=== PATIENT | male | born 1980 | race Caucasian/White ===

== ENCOUNTER 2020-02-28 13:03 | Inpatient (IN) ==
[2020-02-28 13:12] VITALS: BMI 31.6
[2020-02-28] MEDS ORDERED: MORPHINE SULFATE INJ 2 MG INJ IVP ONE (13:34)
[2020-02-28] MEDS ORDERED: ASPIRIN 81 MG CHEWTAB ONE (13:48)
[2020-02-28] MEDS ORDERED: MORPHINE SULFATE INJ 2 MG INJ ONE ×2 (13:49→18:02)
--- NOTE | 2020-02-28 13:58 | RAD ---
HISTORYCHEST PAINSTUDYPortable AP chestCOMPARISONNoneFINDINGSThe lungs are clear and the heart and mediastinum are unremarkable. There is no edema or effusion or congestion. No bony abnormality is suggested.IMPRESSIONNo evidence for active cardiopulmonary diseaseElectronically signed by: NELLY CLEVELAND (Feb 28, 2020 13:57:12)
--- NOTE | 2020-02-28 14:13 | DR.CP ---
HPI Time Seen Time Seen by Provider: 02/28/20 13:27 PCP Primary Care Physician: JAMES LARIOS Complaint Chief Complaint Doctor Comments: A 40 y/o male with SOB for about 1 month now. The dyspnea worsens with exertion. He has also some chest pressure which is non- radiating. There is no nausea or vomiting and diaphoresis. He states that his labs. were drawn in his PCPs office yesterday and this showed cholesterol over 900 and Triglyceride over 8000. He is known to have hyperlipidemia but his Triglyceride values were never this high, she states. Chief Complaint:: PT C/O HIGH TRIGLYCERIEDES, .. AND > SOB AND INTERMITTANT C/P AND PT HAD LABS DRAWN AT [facility] ON 02/27/2020 AND EKG DONE AND PT TOLD TO COME TO ER FOR ALEXIA NOE COVID-19 Coronavirus risk:travel/contact w/high risk person: No Has patient experienced Coronavirus symptoms: Yes Coronavirus symptoms experienced: Shortness of Breath Reviewed Nurses Notes Review: Yes Source History Provided: Patient Mode of Arrival Mode of Arrival: Ambulatory Timing Onset of Chief Complaint: 02/26/20 Location Location of Chest Pain: Chest Chest Pain Radiation Location: None Context Onset: At rest Cardiac Risk Factors: Hyperlipidemia and Diabetes PE Risk Factors: None History of: None Prehospital Care: None Quality Quality: Squeezing Severity Severity: Mild and Moderate Modifying Factors Worsens: Nothing Impoves: Nothing Associated Signs and Symptoms Associated Signs and Symptoms: Shortness of Breath PMH PMH Past Medical History: Yes Past Medical History: Dementia, Dyslipidemia and Hypertension Past Medical History Comment: PANCREATITIS , ID , HEART CATH Past Surgical History: Yes Surgical History: Appendectomy Family History History of Family Medical Conditions: No Social History Does patient currently use any type of tobacco product: No Have you used tobacco products in the last 12 months: No Type of Tobacco Use: None Does any household member use tobacco: No Alcohol Use: None Do you use any recreational Drugs:: No Lives With: Family Lives Where: Home Travel Risk Coronavirus risk:travel/contact w/high risk person: No Has patient experienced Coronavirus symptoms: Yes Coronavirus symptoms experienced: Shortness of Breath Infectious screening In the last 2 months have you had wt loss of >10#?: NO Have you had fever, night sweats or hemotysis?: No Have you traveled outside the country in the last 6 months?: No Isolation: Standard ROS Review of Systems Constitutional: No Symptoms Reported Eyes: No Symptoms Reported ENTM: No Symptoms Reported Respiratoy: Short of Breath Cardiovascular: Chest Pain Gastrointestinal/Abdominal: No Symptoms Reported Genitourinary: No Symptoms Reported Neurological: No Symptoms Reported Musculoskeletal: No Symptoms Reported Integumentary: No Symptoms Reported Hematologic/Lymphatic: No Symptoms Reported Endocrine: No Symptoms Reported Psychiatric: No Symptoms Reported PE Vitals Vitals: Temperature 98.1 F Pulse Rate 101 Respiratory Rate 19 Blood Pressure 171/94 O2 Sat by Pulse Oximetry 98 General Limitations: No Limitations General Appearance: Alert and In No Apparent Distress Head Head Exam: Normal Inspection, Atraumatic and Normocephalic Eyes Eye exam: Normal Appearance and EOMI ENT ENT Exam: Normal Exam, Normal Oropharynx, Normal External Ear Exam and Mucous Membranes Moist Chest Chest Inspection: Normal Inspection and Symmetric Chest Wall Rise Respiratory Respiratory Exam: Normal Lung Sounds Bilat Cardiovascular Cardiovascular Exam: Regular Rate, Normal Rhythm, Normal Heart Sounds, +S1 and +S2 Abdominal Exam Abdominal Exam: Normal Inspection, Normal Bowel Sounds and Soft Extremities Extremities Exam: Normal Inspection and Full ROM Back Back Exam: Normal Inspection and Full ROM Neurologic Neurological Exam: Alert and Oriented X3 Psychiatric Psychiatric Exam: Normal Affect and Normal Mood Skin Skin Exam: Dry and Normal Color COURSE Treatment Treatment: I spoke with his PCP (Dr. Madrigal), he agrees to have the pt. placed in OBS. Reevaluation 1st: Improved Education/Counseling Education/Counseling: Patient, Family, Education and Counseling Educated On: Treatment, Diagnosis, Prognosis and Needs for Follow Up ROR Labs Reviewed Laboratory Results Reviewed?: Yes Result Diagrams: 02/28/20 14:23 02/28/20 14:23 Laboratory: WBC 5.6 X10^3/uL (3.6-10.0) 02/28/20 14:23 RBC 4.66 X10^6/uL (4.7-6.0) L 02/28/20 14:23 Hgb 13.3 g/dL (13.5-18.0) L 02/28/20 14:23 Hct 37.2 % (42.0-54.0) L 02/28/20 14:23 MCV 79.9 fL (80.0-100.0) L 02/28/20 14:23 MCH 28.5 pg (27.0-34.0) 02/28/20 14:23 MCHC 35.7 g/dL (33.0-35.0) H 02/28/20 14:23 RDW 14.4 % (11.6-16.5) 02/28/20 14:23 Plt Count 187 X10^3/uL (150.0-450.0) 02/28/20 14:23 MPV 7.6 fL (7.4-11.0) 02/28/20 14:23 Neut % (Auto) 57.6 % (42.0-75.0) 02/28/20 14:23 Lymph % (Auto) 32.6 % (21.0-51.0) 02/28/20 14:23 [place] % (Auto) 6.3 % (0.0-13.0) 02/28/20 14:23 Eos % (Auto) 2.4 % (0.9-2.9) 02/28/20 14:23 Baso % (Auto) 1.1 % (0.2-1.0) H 02/28/20 14:23 Neut # (Auto) 3.2 x10^3/uL (2.2-4.8) 02/28/20 14:23 Lymph # (Auto) 1.8 X10^3/uL (1.3-2.9) 02/28/20 14:23 [place] # (Auto) 0.4 x10^3/uL (0.3-0.8) 02/28/20 14:23 Eos # (Auto) 0.1 x10^3/uL (0.0-0.2) 02/28/20 14:23 Baso # (Auto) 0.1 X10^3/uL (0.0-0.1) 02/28/20 14:23 Absolute Nucleated RBC 0.6 /100WBC 02/28/20 14:23 PT 12.1 SECONDS (11.8-14.3) 02/28/20 14:23 INR Target Range - 02/28/20 14:23 INR 0.92 (0.8-1.3) 02/28/20 14:23 D-Dimer < 100 ng/mL (0-400) 02/28/20 14:23 Sodium 122 mmol/L (136-145) L* 02/28/20 14:23 Corrected Sodium 129 mmol/L (136-145) L 02/28/20 14:23 Potassium 4.1 mmol/L (3.5-5.1) 02/28/20 14:23 Chloride 89 mmol/L (98-107) L 02/28/20 14:23 Carbon Dioxide 18.5 mmol/L (21-32) L 02/28/20 14:23 BUN 12 mg/dL (7-18) 02/28/20 14:23 Creatinine 0.80 mg/dL (0.70-1.30) 02/28/20 14:23 Est GFR (MDRD) Af Amer > 60 (>60) 02/28/20 14:23 Est GFR (MDRD) Non-Af > 60 (>60) 02/28/20 14:23 Glucose 410 mg/dL (65-99) H 02/28/20 14:23 Calcium 6.5 mg/dL (8.5-10.1) L 02/28/20 14:23 Corrected Calcium 7.3 mg/dL (8.5-10.1) L 02/28/20 14:23 Magnesium 1.6 mg/dL (1.7-2.9) L 02/28/20 14:23 Total Bilirubin 0.24 mg/dL (0.2-1.0) 02/28/20 14:23 AST 8 Units/L (15-37) L 02/28/20 14:23 ALT 24 Units/L (12-78) 02/28/20 14:23 Alkaline Phosphatase 65 Units/L (46-116) 02/28/20 14:23 Creatine Kinase 43 Units/L (39-308) 02/28/20 14:23 CK-MB (CK-2) < 1.0 ng/mL (0-4.0) 02/28/20 14:23 CK/CKMB % Calc 2.3 % (<4) 02/28/20 14:23 Troponin I 0.12 ng/mL (0-1.5) 02/28/20 14:23 Total Protein 3.8 g/dL (6.4-8.2) L 02/28/20 14:23 Albumin 3.0 g/dL (3.4-5.0) L 02/28/20 14:23 Globulin 0.8 g/dL (2.5-4.5) L 02/28/20 14:23 Albumin/Globulin Ratio 3.8 Ratio (1.1-2.1) H 02/28/20 14:23 Specimen Type Clean catch urine 02/28/20 14:12 Urine Color Yellow (YELLOW) 02/28/20 14:12 Urine Appearance Clear (CLEAR) 02/28/20 14:12 Urine pH 5.0 (5.0 - 8.0) 02/28/20 14:12 Ur Specific [place] 1.015 (1.000-1.030) 02/28/20 14:12 Urine Protein Negative (NEGATIVE) 02/28/20 14:12 Urine Glucose (UA) 4+ (NEGATIVE) 02/28/20 14:12 Urine Ketones 1+ (NEGATIVE) 02/28/20 14:12 Urine Occult Blood Negative (NEGATIVE) 02/28/20 14:12 Urine Nitrite Negative (NEGATIVE) 02/28/20 14:12 Urine Bilirubin Negative (NEGATIVE) 02/28/20 14:12 Urine Urobilinogen Normal (NORMAL) 02/28/20 14:12 Ur Leukocyte Esterase Negative (NEGATIVE) 02/28/20 14:12 XRAY XRAY Interpreted by: Self X-ray Results: CXR: normal chest exam. Radiologist report is pending. EKG Rate: 110 Taylor: Normal Rhythm: ST Block: None Hypertrophy: None ST: Normal Opioid Opioid Risk Tool Age (Bruce box if 16-45): Yes History of Preadolescent Sexual Abuse: No Total: 1 Total Score Risk Category: Low Risk Copyright: [facility] predicting aberrant behaviors Diagnosis Discharge Problem: Acute hyponatremia, Type 2 diabetes mellitus with hyperglycemia, with long-term current use of insulin Chest pain Qualifiers: Chest pain type: unspecified Qualified Code(s): R07.9 - Chest pain, unspecified HTN (hypertension) Qualifiers: Hypertension type: essential hypertension Qualified Code(s): I10 - Essential (primary) hypertension ADDITIONAL NOTES Additional Notes Additional Notes: [id number] : 1980 Sex: M Location: ER Order Number(s): [id number] Procedure(s):CHEST, 1 VIEW Ordering Physician: MYA PHAM Primary Care: Chase Madrigal Service Date: 02/28/20 Service Time: 1334 HISTORY CHEST PAIN STUDY Portable AP chest COMPARISON None FINDINGS The lungs are clear and the heart and mediastinum are unremarkable. There is no edema or effusion or congestion. No bony abnormality is suggested. IMPRESSION No evidence for active cardiopulmonary disease Electronically signed by: NELLY CLEVELAND (Feb 28, 2020 13:57:12) Report Electronically signed: 02/28/20 1358 CC: Mya Pham
[2020-02-28 14:33] LABS: EOSINOPHILS % (AUTO) 2.4 % (0.9-2.9)
[2020-02-28 14:35] LABS: BILIRUBIN,URINE NEGATIVE (NEGATIVE); BLOOD/HEMOGLOBIN,URINE NEGATIVE (NEGATIVE); GLUCOSE, URINE 4+ (NEGATIVE); KETONES,URINE 1+ (NEGATIVE); LEUKOCYTE ESTERASE ,URINE NEGATIVE (NEGATIVE); NITRITES,URINE NEGATIVE (NEGATIVE); PROTEIN,URINE NEGATIVE (NEGATIVE); UROBILINOGEN,URINE NORMAL (NORMAL)
[2020-02-28 14:39] LABS: APPEARANCE,URINE CLEAR (CLEAR); COLOR,URINE YELLOW (YELLOW)
[2020-02-28 14:52] LABS: BASOPHILS # (AUTO) 0.1 X10^3/uL (0.0-0.1); BASOPHILS % (AUTO) 1.1 % (0.2-1.0); EOSINOPHILS # (AUTO) 0.1 x10^3/uL (0.0-0.2); HEMATOCRIT 37.2 % (42.0-54.0); HEMOGLOBIN 13.3 g/dL (13.5-18.0); LYMPHOCYTES # (AUTO) 1.8 X10^3/uL (1.3-2.9); LYMPHOCYTES % (AUTO) 32.6 % (21.0-51.0); MEAN CORPUSCULAR HEMOGLOBIN 28.5 pg (27.0-34.0); MEAN CORPUSCULAR HGB CONC 35.7 g/dL (33.0-35.0); MEAN CORPUSCULAR VOLUME 79.9 fL (80.0-100.0); MEAN PLATELET VOLUME 7.6 fL (7.4-11.0); MONOCYTES # (AUTO) 0.4 x10^3/uL (0.3-0.8); MONOCYTES % (AUTO) 6.3 % (0.0-13.0); NEUTROPHILS # (AUTO) 3.2 x10^3/uL (2.2-4.8); NEUTROPHILS % (AUTO) 57.6 % (42.0-75.0); PLATELET COUNT 187 X10^3/uL (150.0-450.0); RED BLOOD COUNT 4.66 X10^6/uL (4.7-6.0); RED CELL DISTRIBUTION WIDTH 14.4 % (11.6-16.5); WHITE BLOOD COUNT 5.6 X10^3/uL (3.6-10.0)
[2020-02-28 15:37] LABS: CARBON DIOXIDE 18.5 mmol/L (21-32); CHLORIDE 89 mmol/L (98-107); SODIUM 122 mmol/L (136-145)
[2020-02-28 15:38] LABS: ALANINE AMINOTRANSFERASE 24 Units/L (12-78); ALKALINE PHOSPHATASE 65 Units/L (46-116); ASPARTATE AMINO TRANSFERASE 8 Units/L (15-37); BLOOD UREA NITROGEN 12 mg/dL (7-18); CALCIUM 6.5 mg/dL (8.5-10.1); COR NA(FOR HYPERGLY) 129 mmol/L (136-145); eGFR NON BLACK RACES > 60 (>60)
[2020-02-28 15:39] LABS: CKMB % 2.3 % (<4); COR CA(FOR HYPOALB) 7.3 mg/dL (8.5-10.1); CREATINE KINASE 43 Units/L (39-308); CREATINE KINASE MB < 1.0 ng/mL (0-4.0); MAGNESIUM 1.6 mg/dL (1.7-2.9); TOTAL PROTEIN 3.8 g/dL (6.4-8.2); TROPONIN I 0.12 ng/mL (0-1.5)
[2020-02-28] MEDS ORDERED: NITROSTAT SL PRN (17:28)
[2020-02-28] MEDS ORDERED: INSULIN ASPART U 1 UNIT subcut PRN (17:28)
[2020-02-28 17:50] LABS: AMYLASE 27 Units/L (25-115)
[2020-02-28 17:52] LABS: LIPASE 90 Units/L (73-393)
[2020-02-28] MEDS: MORPHINE SULFATE INJ 2 MG INJ IVP PRN ×2 (18:05→23:46)
[2020-02-28] MEDS ORDERED: ZOFRAN INJ 4 MG VIAL ONE (18:15)
[2020-02-28] MEDS: ZOFRAN INJ 4 MG VIAL IVP PRN (18:23)
[2020-02-28] MEDS: NS 1000 ML 1,000 ML IV SCH (18:33)
[2020-02-28] MEDS: SNACK - Diabetic Appropriate PO SCH (20:30)
[2020-02-28] MEDS ORDERED: GLUCOPHAGE ONE (20:44)
[2020-02-28] MEDS: LIPITOR TAB 40 MG PO SCH (21:01)
[2020-02-28] MEDS: GLUCOPHAGE PO SCH (21:01)
[2020-02-28] MEDS: LOPRESSOR TAB 50 MG PO SCH (21:01)
[2020-02-28 21:11] LABS: TROPONIN I 0.12 ng/mL (0-1.5)
[2020-02-28] MEDS: RESTORIL CAP 15 MG PO PRN (21:30)
[2020-02-28 21:52] LABS: CKMB % 7.2 % (<4); CREATINE KINASE MB 5.2 ng/mL (0-4.0)
[2020-02-28] MEDS: HumuLIN R SUBCUT PRN (22:00)
[2020-02-28] MEDS: NORCO 5/325 MG TAB PO PRN (22:00)
[2020-02-28 23:58] LABS: CKMB % 4.4 % (<4)
[2020-02-28 23:59] LABS: CREATINE KINASE MB 5.5 ng/mL (0-4.0); TROPONIN I 0.1 ng/mL (0-1.5)
[2020-02-29] MEDS: NS 1000 ML 1,000 ML IV SCH ×3 (01:57→17:30)
[2020-02-29] MEDS: ZOFRAN INJ 4 MG VIAL IVP PRN ×2 (02:30→19:40)
[2020-02-29 03:01] LABS: CKMB % 2.1 % (<4)
[2020-02-29 03:02] LABS: TROPONIN I 0.09 ng/mL (0-1.5)
[2020-02-29] MEDS: MORPHINE SULFATE INJ 2 MG INJ IVP PRN ×4 (05:36→19:40)
[2020-02-29] MEDS: HumuLIN R SUBCUT PRN ×3 (06:39→17:37)
[2020-02-29 06:46] LABS: BASOPHILS # (AUTO) 0.1 X10^3/uL (0.0-0.1); BASOPHILS % (AUTO) 0.9 % (0.2-1.0); EOSINOPHILS # (AUTO) 0.2 x10^3/uL (0.0-0.2); EOSINOPHILS % (AUTO) 3.7 % (0.9-2.9); HEMATOCRIT 39.7 % (42.0-54.0); LYMPHOCYTES # (AUTO) 2.1 X10^3/uL (1.3-2.9); LYMPHOCYTES % (AUTO) 32.6 % (21.0-51.0); MEAN CORPUSCULAR HEMOGLOBIN 29.1 pg (27.0-34.0); MEAN CORPUSCULAR HGB CONC 35.8 g/dL (33.0-35.0); MEAN CORPUSCULAR VOLUME 81.3 fL (80.0-100.0); MONOCYTES # (AUTO) 0.5 x10^3/uL (0.3-0.8); MONOCYTES % (AUTO) 7.6 % (0.0-13.0); NEUTROPHILS # (AUTO) 3.6 x10^3/uL (2.2-4.8); NEUTROPHILS % (AUTO) 55.2 % (42.0-75.0); PLATELET COUNT 241 X10^3/uL (150.0-450.0); RED BLOOD COUNT 4.88 X10^6/uL (4.7-6.0); WHITE BLOOD COUNT 6.5 X10^3/uL (3.6-10.0)
[2020-02-29 07:02] LABS: CHLORIDE 93 mmol/L (98-107); SODIUM 126 mmol/L (136-145)
[2020-02-29 07:03] LABS: BLOOD UREA NITROGEN 14 mg/dL (7-18); CALCIUM 7.9 mg/dL (8.5-10.1); CARBON DIOXIDE 27.4 mmol/L (21-32); COR NA(FOR HYPERGLY) 133 mmol/L (136-145); eGFR NON BLACK RACES > 60 (>60)
[2020-02-29 07:04] LABS: ALANINE AMINOTRANSFERASE 54 Units/L (12-78); ALBUMIN 3.5 g/dL (3.4-5.0); ALKALINE PHOSPHATASE 77 Units/L (46-116); ASPARTATE AMINO TRANSFERASE 24 Units/L (15-37); TOTAL PROTEIN 5.9 g/dL (6.4-8.2)
[2020-02-29 07:05] LABS: HEMOGLOBIN 14.2 g/dL (13.5-18.0)
[2020-02-29 07:06] LABS: HDL CHOLESTEROL 35 mg/dL (40-60); PLATELET MORPHOLOGY COMMENT NORMAL (NORMAL); TRIGLYCERIDES 3349 mg/dL (0-150)
[2020-02-29] MEDS ORDERED: ACTOS PO SCH (09:00)
[2020-02-29] MEDS ORDERED: ASPIRIN 81 MG CHEWTAB PO SCH (09:00)
[2020-02-29] MEDS ORDERED: GLUCOPHAGE ONE ×2 (09:09→20:16)
[2020-02-29] MEDS: GLUCOPHAGE PO SCH ×2 (09:42→20:51)
[2020-02-29] MEDS: ASPIRIN PO SCH (09:42)
[2020-02-29] MEDS: LOPRESSOR TAB 50 MG PO SCH ×2 (09:43→20:55)
[2020-02-29] MEDS: TRICOR TAB 160 MG PO SCH (09:43)
[2020-02-29] MEDS: LOVENOX INJ 40 MG SYR SC SCH (09:44)
--- NOTE | 2020-02-29 10:55 | DR.H&P ---
H&P - History & Physical for Day of: H&P Date: 02/28/20 - Chief Complaint Chief Complaint: SOB, CHEST PAIN, HEADACHE, MUSCLE WEAKNESS, NAUSEA - History of Present Illness History of Present Illness: IS A 40 YEAR OLD PATIENT OF OURS WHO PRESENTED TO THE ER WITH COMPLAINTS OF SHORTNESS OF BREATH, CHEST PAIN, HEADACHE, AND MUSCLE WEAKNESS. HE DESCRIBES CHEST PAIN PRESSURE AND NON- RADIATING. OVERALL PAIN IS RATED 6/10. SYMPOTMS STARTED ABOUT A MONTH AGO AND HAVE PROGRESSIVELY GOTTEN WORSE. HE HAD OUTPATIENT LABS AT THE OFFICE, WHICH REPORTED A CRITICAL HIGH TRIGLYCERIDE OVER 8,000 AND CHOLESTEROL OVER 900. HE DOES HAVE A HISTORY OF HYPERLIPIDEMIA AND IS CURRENTLY ON LIPITOR 80MG PO HS. OTHER PMH INCLUDES: PANCREATITIS, CA, DEMENTIA, DYSLIPIDEMIA, HTN, AND APPENDECTOMY. ON ARRIVAL TO THE ER, VITALS WERE 98.1-104-20-95%-171/94. LABS WERE OBTAINED. ABNORMAL LAB VALUES INCLUDE THE FOLLOWING: RBC 4.66, HGB 13.3, HCT 37.2, SODIUM 122, CHLORIDE 89, CARBON DIOXIDE 18.5, GLUCOSE 410, CALCIUM 6.5, MAGNESIUM 1.6, AST 8, TOTAL PROTEIN 3.8, ALBUMIN 3.0. CARDIAC ENZYMES AND AMYLASE/LIPASE WERE NORMAL. FASTING LIPID PANEL REVEALED TRIGLYCERIDES 3349. URINALYSIS UNREMARKABLE. AN EKG WAS OBTAINED AND REVEALED: SINUS TACHYCARDIA WIT H HR 110. A CHEST XRAY WAS OBTAINED AND REVEALED: NO EVIDENCE FOR ACTIVE CARDIOPULMONARY DISEASE. HE WAS GIVEN ASPIRIN 80MG PO X 1 AND MORPHINE 2MG IV X 1 IN THE ER. HE REPORTED SLIGHT IMPROVEMENT IN SYMPTOMS. HE WAS ADMITTED TO THE HOSPITAL FOR FURTHER EVALUATION AND TREATMENT OF HYPONATREMIA, CHEST PAIN, DIABETES, AND ELEVATED TRIGLYCERIDES. HE WAS STARTED ON NS AT 125ML/HR, HUMULIN R SLIDING SCALE, LEVEMIR 10 UNITS SC BID, TRICOR 160MG PO DAILY, ZOFRAN 4MG IV Q8H PRN, NITROSTAT PRN, AND HIS HOME MEDICATIONS WERE RESUMED. HOME MEDICATIONS INCLUDE METFORMIN, LIPITOR, METOPROLOL, AND ASPIRIN. WE WILL RESTRICT HIS FLUID INTAKE TODAY AND START A SOUTH Doculynx DIET. SERIAL CARDIAC ENZYMES AND EKGS WERE OBTAINED THROUGHOUT THE NIGHT TO RULE OUT ACUTE CA. OTHERWISE, WE PLAN TO FOLLOW UP WITH AM LABS AND CONTINUE TO MONITOR. - Past Medical History Past Medical History: Hypertension, Dyslipidemia, Dementia - Past Surgical History Surgical History: Appendectomy, Other - Social History Does patient currently use any type of tobacco product: No Have you used tobacco products in the last 12 months: No Type of Tobacco Use: None Does any household member use tobacco: No Alcohol Use: None Drug Use: None - Medications Home Medications: No Known Drug Allergies Allergy (Verified 02/28/20 13:13) CONTINUE taking the following medications aspirin 325 mg PO DAILY 02/28/20 [History] atorvastatin 80 mg PO HS 02/28/20 [History] insulin aspart U-100 [Novolog U-100 Insulin aspart] 1 unit SUBCUT PRN PRN 02/28/20 [History] metformin 1,000 mg PO BID 02/28/20 [History] metoprolol tartrate 50 mg PO BID 02/28/20 [History] pioglitazone 15 mg PO DAILY 02/28/20 [History] New Prescriptions fenofibric acid (choline) [Trilipix] 135 mg PO QHS #30 cap 02/29/20 [Rx] - Review of Systems Constitutional: Weakness Eyes: No Symptoms Reported ENT: No Symptoms Reported Respiratory: Shortness of Breath, SOB with Excertion Cardiovascular: Chest Pain, Light Headedness Gastrointestinal: No Symptoms Reported Genitourinary: No Symptoms Reported Musculoskeletal: No Symptoms Reported Skin: No Symptoms Reported Neurological: See HPI, Weakness, Other (headache ) - Physical Exam Vital Signs: Temperature 98.1 F Pulse Rate [Right Brachial] 67 Pulse Rate 87 Respiratory Rate 22 Blood Pressure [Right Arm] 127/77 Blood Pressure 143/86 O2 Sat by Pulse Oximetry 98 Oriented: Normal Eyes: Normal Ear: Normal Nose: Normal Throat: Normal Respiratory: Diminished Throughout Cardiovascular: Tachycardia : Normal Auscultation: Bowel Sounds: Normal Palpation: Normal Tenderness: Normal Skin: Normal Musculoskeletal: Normal Psychiatric: Normal Mood Description: Calm Affect: Normal Speech Pattern: Clear - Assessment/Plan (1) Acute hyponatremia Status: Acute Plan: admit, NS AT 125ML/HR, HUMULIN R SLIDING SCALE, LEVEMIR 10 UNITS SC BID, TRICOR 160MG PO DAILY, ZOFRAN 4MG IV Q8H PRN, NITROSTAT PRN, AND HIS HOME MEDICATIONS WERE RESUMED (2) Chest pain Qualifiers: Chest pain type: unspecified Qualified Code(s): R07.9 - Chest pain, unspecified Status: Acute (3) Elevated triglycerides with high cholesterol Status: Acute (4) HTN (hypertension) Qualifiers: Hypertension type: essential hypertension Qualified Code(s): I10 - Essential (primary) hypertension Status: Acute (5) Type 2 diabetes mellitus with hyperglycemia, with long-term current use of insulin Status: Chronic - Allergies Allergies/Adverse Reactions: Allergies Allergy/AdvReac Type Severity Reaction Status Date / Time No Known Drug Allergies Allergy Verified 02/28/20 13:13
[2020-02-29] MEDS: LEVEMIR SC SCH ×2 (11:43→21:17)
[2020-02-29] MEDS: NORCO 5/325 MG TAB PO PRN (11:47)
[2020-02-29] MEDS: SNACK - Diabetic Appropriate PO SCH (20:50)
[2020-02-29] MEDS: LIPITOR TAB 40 MG PO SCH (20:55)
[2020-02-29] MEDS: RESTORIL CAP 15 MG PO PRN (21:18)
[2020-03-01] MEDS: NS 1000 ML 1,000 ML IV SCH ×3 (00:30→18:10)
[2020-03-01] MEDS: HumuLIN R SUBCUT PRN ×3 (06:11→18:18)
[2020-03-01 06:28] LABS: CARBON DIOXIDE 20.9 mmol/L (21-32); CHLORIDE 94 mmol/L (98-107); eGFR NON BLACK RACES > 60 (>60)
[2020-03-01 06:53] LABS: BASOPHILS # (AUTO) 0.1 X10^3/uL (0.0-0.1); BASOPHILS % (AUTO) 0.9 % (0.2-1.0); EOSINOPHILS # (AUTO) 0.1 x10^3/uL (0.0-0.2); EOSINOPHILS % (AUTO) 2.6 % (0.9-2.9); LYMPHOCYTES # (AUTO) 1.8 X10^3/uL (1.3-2.9); LYMPHOCYTES % (AUTO) 31.4 % (21.0-51.0); MEAN CORPUSCULAR HGB CONC 34.3 g/dL (33.0-35.0); MEAN CORPUSCULAR VOLUME 81.6 fL (80.0-100.0); MEAN PLATELET VOLUME 8.1 fL (7.4-11.0); MONOCYTES # (AUTO) 0.3 x10^3/uL (0.3-0.8); MONOCYTES % (AUTO) 5.4 % (0.0-13.0); NEUTROPHILS # (AUTO) 3.5 x10^3/uL (2.2-4.8); NEUTROPHILS % (AUTO) 59.7 % (42.0-75.0); PLATELET COUNT 208 X10^3/uL (150.0-450.0); RED BLOOD COUNT 5.03 X10^6/uL (4.7-6.0); RED CELL DISTRIBUTION WIDTH 14.7 % (11.6-16.5); WHITE BLOOD COUNT 5.8 X10^3/uL (3.6-10.0)
[2020-03-01 07:00] LABS: HEMOGLOBIN 14.1 g/dL (13.5-18.0)
[2020-03-01 07:05] LABS: PLATELET MORPHOLOGY COMMENT NORMAL (NORMAL)
[2020-03-01] MEDS ORDERED: GLUCOPHAGE ONE ×2 (08:16→20:00)
[2020-03-01 08:30] LABS: BLOOD UREA NITROGEN 14 mg/dL (7-18); COR NA(FOR HYPERGLY) 127 mmol/L (136-145); CREATININE 0.76 mg/dL (0.70-1.30); SODIUM 124 mmol/L (136-145)
[2020-03-01] MEDS: GLUCOPHAGE PO SCH ×2 (08:30→20:43)
[2020-03-01] MEDS: LOPRESSOR TAB 50 MG PO SCH ×2 (08:30→20:45)
[2020-03-01] MEDS: ASPIRIN PO SCH (08:30)
[2020-03-01] MEDS: TRICOR TAB 160 MG PO SCH (08:30)
[2020-03-01 08:31] LABS: ALANINE AMINOTRANSFERASE 59 Units/L (12-78); ALBUMIN 3.4 g/dL (3.4-5.0); ALKALINE PHOSPHATASE 65 Units/L (46-116); ASPARTATE AMINO TRANSFERASE 27 Units/L (15-37); CALCIUM 7.9 mg/dL (8.5-10.1); TOTAL PROTEIN 5.5 g/dL (6.4-8.2)
[2020-03-01] MEDS: LEVEMIR SC SCH (08:31)
[2020-03-01] MEDS: ZOFRAN INJ 4 MG VIAL IVP PRN ×2 (08:31→17:00)
[2020-03-01] MEDS: LOVENOX INJ 40 MG SYR SC SCH (08:31)
[2020-03-01] MEDS: MORPHINE SULFATE INJ 2 MG INJ IVP PRN ×2 (08:45→17:20)
[2020-03-01 10:58] LABS: CREATINE KINASE MB < 1.0 ng/mL (0-4.0); TROPONIN I < 0.02 ng/mL (0-1.5)
[2020-03-01 11:39] LABS: CKMB % 2.3 % (<4)
[2020-03-01 11:41] LABS: CREATINE KINASE 44 Units/L (39-308)
--- NOTE | 2020-03-01 14:12 | VAS ---
HISTORYELEVATED LIPIDS, HTNConcern for carotid artery stenosis. Carotid atherosclerosis.EXAM: BILATERAL DOPPLER CAROTID ULTRASOUND EXAMTechnique: Multiple [place] scale and color flow Doppler images of the right and left carotid arterial system were obtained. The vertebral arterial system was evaluated as well.Findings:Nonocclusive color flow Doppler is seen throughout the right and left carotid arterial system. No hemodynamically significant carotid arterial stenosis is seen based on velocity criteria. There is mild atherosclerosis and soft atherosclerotic plaque formation of the bilateral carotid bulbs and ICAs with associated intimal thickening but [without] evidence for high-grade stenosis (>70%) or occlusion of the carotid arteries. The right and left vertebral artery demonstrate antegrade flow.IMPRESSION:Mild atherosclerosis and soft atherosclerotic plaque formation of the bilateral carotid bulbs and in both ICAs with associated carotid intimal thickening but without evidence for high-grade stenosis or occlusion of the carotid arteries, based on Doppler velocity criteria.Appropriate, antegrade, vertebral arterial flow.Peak right ICA velocity: 73 centimeter/seconds.Peak right CCA velocity: 86 centimeter/seconds.Peak left ICA velocity: 81 centimeter/seconds.Peak left CCA velocity: 98 centimeter/seconds.Right ICA to CCA ratio: 0.9.Left ICA to CCA ratio: 0.8.Electronically signed by: LETICIA BROWN III (Mar 01, 2020 14:10:30)
--- NOTE | 2020-03-01 14:32 | PCM.PROG ---
Progress Note - Progress Note for Day of Date of Exam: 03/01/20 - Subjective Subjective: IS BEING TREATED FOR ACUTE HYPONATREMIA, CHEST PAIN, ELEVATED TRIGLYCERIDES, HTN, AND DIABETES WITH HYPERGLYCEMIA. TODAY, HE IS ALERT AND ORIENTED, LYING IN BED ON MORNING ROUNDS. HE CONTINUES WITH COMPLAINTS OF WEAKNESS AND INTERMITTENT CHEST PAIN. HE DESCRIBES PAIN STABBING. HE STATES THAT IT COMES AND GOES. ON EXAMINATION, HEART IS REGULAR IN RATE AND RHYTHM. BILATERAL LUNGS ARE NOTED WITH DIMINISHED LUNG SOUNDS THROUGHOUT. ABDOMEN IS ROUND, SOFT, AND NON-TENDER WITH NORMAL BOWEL SOUNDS NOTED IN ALL QUADRANTS. HIS VITALS THIS MORNING ARE: 98.1-67-20-98%-127/77. LABS WERE OBTAINED. ABNORMAL LAB VALUES INCLUDE THE FOLLOWING: HCT 41.0, SODIUM 124, CHLORIDE 94, CARBON DIOXIDE 20.9, GLUCOSE 205, CALCIUM 7.9, TOTAL PROTEIN 5.5, GLOBULIN 2.2. H-PYLORI NEGATIVE. CARDIAC ENZYMES AND EKGS HAVE BEEN NORMAL. HE IS CURRENTLY RECEIVING NS AT 125ML/HR, HUMULIN R SLIDING SCALE, LEVEMIR 10 UNITS SC BID, LOVENOX, TRICOR 160MG PO DAILY, ZOFRAN 4MG IV Q8H PRN, NITROSTAT PRN, AND HIS HOME MEDICATIONS WERE RESUMED. HOME MEDICATIONS INCLUDE METFORMIN, LIPITOR, METOPROLOL, AND ASPIRIN. WE WILL INCREASE LEVEMIR TO 12 UNITS SC BID. WE WILL OBTAIN AN ECHO AND CAROTID DOPPLER TODAY. OTHERWISE, WE WILL CONTINUE WITH CURRENT PLAN OF CARE, FOLLOW UP WITH AM LABS, AND CONTINUE TO MONITOR. - Past Medical Family Social History Past Med/Fam/Surg Hx: No changes since H&P Allergies: Allergies No Known Drug Allergies Allergy (Verified 02/28/20 13:13) - Review of Systems ROS: No change since H&P - Vital Signs and I&O's Vital Signs: Temperature 97.8 F Pulse Rate [Right Brachial] 58 Pulse Rate 87 Respiratory Rate 18 Blood Pressure [Right Arm] 114/67 Blood Pressure 143/86 O2 Sat by Pulse Oximetry 96 Intake and Output: Intake & Output 02/28/20 02/29/20 03/01/20 03/02/20 11:59 11:59 11:59 11:59 Intake Total 2545 / 2545 2460 / 2460 Balance 2545 / 2545 2460 / 2460 - Physical Exam Oriented: Normal Eyes: Normal Ear: Normal Nose: Normal Throat: Normal Respiratory: Generalized, Diminished Cardiovascular: Normal : Normal Auscultation: Bowel Sounds: Normal Palpation: Normal Tenderness: Normal Skin: Normal Musculoskeletal: Normal Psychiatric: Normal Mood Description: Calm Affect: Normal Speech Pattern: Clear, Appropriate - Laboratory and Diagnostics Result Diagrams: 03/01/20 05:40 03/01/20 07:45 Labs: Laboratory WBC 5.8 X10^3/uL (3.6-10.0) 03/01/20 05:40 RBC 5.03 X10^6/uL (4.7-6.0) 03/01/20 05:40 Hgb 14.1 g/dL (13.5-18.0) 03/01/20 05:40 Hct 41.0 % (42.0-54.0) L 03/01/20 05:40 MCV 81.6 fL (80.0-100.0) 03/01/20 05:40 MCH 28.0 pg (27.0-34.0) 03/01/20 05:40 MCHC 34.3 g/dL (33.0-35.0) 03/01/20 05:40 RDW 14.7 % (11.6-16.5) 03/01/20 05:40 Plt Count 208 X10^3/uL (150.0-450.0) 03/01/20 05:40 Plt Count Comment Adequate (ADEQUATE) 03/01/20 05:40 MPV 8.1 fL (7.4-11.0) 03/01/20 05:40 Neut % (Auto) 59.7 % (42.0-75.0) 03/01/20 05:40 Lymph % (Auto) 31.4 % (21.0-51.0) 03/01/20 05:40 [place] % (Auto) 5.4 % (0.0-13.0) 03/01/20 05:40 Eos % (Auto) 2.6 % (0.9-2.9) 03/01/20 05:40 Baso % (Auto) 0.9 % (0.2-1.0) 03/01/20 05:40 Neut # (Auto) 3.5 x10^3/uL (2.2-4.8) 03/01/20 05:40 Lymph # (Auto) 1.8 X10^3/uL (1.3-2.9) 03/01/20 05:40 [place] # (Auto) 0.3 x10^3/uL (0.3-0.8) 03/01/20 05:40 Eos # (Auto) 0.1 x10^3/uL (0.0-0.2) 03/01/20 05:40 Baso # (Auto) 0.1 X10^3/uL (0.0-0.1) 03/01/20 05:40 Absolute Nucleated RBC 2.1 /100WBC 03/01/20 05:40 Plt Morphology Comment Normal (NORMAL) 03/01/20 05:40 RBC Morphology Normal (NORMAL) 03/01/20 05:40 PT 12.4 SECONDS (11.8-14.3) 02/29/20 05:16 INR Target Range - 02/29/20 05:16 INR 0.95 (0.8-1.3) 02/29/20 05:16 D-Dimer < 100 ng/mL (0-400) 02/28/20 14:23 Sodium 124 mmol/L (136-145) L* 03/01/20 07:45 Corrected Sodium 127 mmol/L (136-145) L 03/01/20 07:45 Potassium 4.9 mmol/L (3.5-5.1) 03/01/20 07:45 Chloride 94 mmol/L (98-107) L 03/01/20 07:45 Carbon Dioxide 20.9 mmol/L (21-32) L 03/01/20 07:45 BUN 14 mg/dL (7-18) 03/01/20 07:45 Creatinine 0.76 mg/dL (0.70-1.30) 03/01/20 07:45 Est GFR (MDRD) Af Amer > 60 (>60) 03/01/20 07:45 Est GFR (MDRD) Non-Af > 60 (>60) 03/01/20 07:45 Glucose 205 mg/dL (65-99) H 03/01/20 07:45 POC Glucose (mg/dL) 209 mg/dL (65-99) H 03/01/20 12:28 Hemoglobin A1c Cancelled 02/29/20 14:17 Calcium 7.9 mg/dL (8.5-10.1) L 03/01/20 07:45 Corrected Calcium TNP 03/01/20 07:45 Magnesium 1.6 mg/dL (1.7-2.9) L 02/28/20 14:23 Total Bilirubin 0.36 mg/dL (0.2-1.0) 03/01/20 07:45 AST 27 Units/L (15-37) 03/01/20 07:45 ALT 59 Units/L (12-78) 03/01/20 07:45 Alkaline Phosphatase 65 Units/L (46-116) 03/01/20 07:45 Creatine Kinase 44 Units/L (39-308) 03/01/20 10:21 CK-MB (CK-2) < 1.0 ng/mL (0-4.0) 03/01/20 10:21 CK/CKMB % Calc 2.3 % (<4) 03/01/20 10:21 Troponin I < 0.02 ng/mL (0-1.5) 03/01/20 10:21 Total Protein 5.5 g/dL (6.4-8.2) L 03/01/20 07:45 Albumin 3.4 g/dL (3.4-5.0) 03/01/20 07:45 Globulin 2.2 g/dL (2.5-4.5) L 03/01/20 07:45 Albumin/Globulin Ratio 1.6 Ratio (1.1-2.1) 03/01/20 07:45 Triglycerides 3349 mg/dL (0-150) H 02/29/20 05:16 Cholesterol TNP 02/29/20 05:16 LDL Cholesterol, Calc TNP 02/29/20 05:16 HDL Cholesterol 35 mg/dL (40-60) L 02/29/20 05:16 Cholesterol/HDL Ratio TNP 02/29/20 05:16 Amylase 27 Units/L (25-115) 02/28/20 14:23 Lipase 90 Units/L (73-393) 02/28/20 14:23 Specimen Type Clean catch urine 02/28/20 14:12 Urine Color Yellow (YELLOW) 02/28/20 14:12 Urine Appearance Clear (CLEAR) 02/28/20 14:12 Urine pH 5.0 (5.0 - 8.0) 02/28/20 14:12 Ur Specific [place] 1.015 (1.000-1.030) 02/28/20 14:12 Urine Protein Negative (NEGATIVE) 02/28/20 14:12 Urine Glucose (UA) 4+ (NEGATIVE) 02/28/20 14:12 Urine Ketones 1+ (NEGATIVE) 02/28/20 14:12 Urine Occult Blood Negative (NEGATIVE) 02/28/20 14:12 Urine Nitrite Negative (NEGATIVE) 02/28/20 14:12 Urine Bilirubin Negative (NEGATIVE) 02/28/20 14:12 Urine Urobilinogen Normal (NORMAL) 02/28/20 14:12 Ur Leukocyte Esterase Negative (NEGATIVE) 02/28/20 14:12 Stool H. pylori Ag Negative (NEGATIVE) 02/29/20 08:30 - Plan (1) Acute hyponatremia Status: Acute Plan: NS AT 125ML/HR, HUMULIN R SLIDING SCALE, LEVEMIR 12 UNITS SC BID, TRICOR 160MG PO DAILY, ZOFRAN 4MG IV Q8H PRN, NITROSTAT PRN, AND HIS HOME MEDICATIONS WERE RESUMED (2) Chest pain Status: Acute Qualifiers: Chest pain type: unspecified Qualified Code(s): R07.9 - Chest pain, unspecified (3) Elevated triglycerides with high cholesterol Status: Acute (4) HTN (hypertension) Status: Acute Qualifiers: Hypertension type: essential hypertension Qualified Code(s): I10 - Essential (primary) hypertension (5) Type 2 diabetes mellitus with hyperglycemia, with long-term current use of insulin Status: Chronic
[2020-03-01 14:58] LABS: CREATINE KINASE MB < 1.0 ng/mL (0-4.0); TROPONIN I < 0.02 ng/mL (0-1.5)
[2020-03-01 15:35] LABS: CREATINE KINASE 96 Units/L (39-308)
[2020-03-01 18:51] LABS: CREATINE KINASE MB < 1.0 ng/mL (0-4.0); TROPONIN I < 0.02 ng/mL (0-1.5)
[2020-03-01 19:11] LABS: CKMB % 0.9 % (<4)
[2020-03-01 19:15] LABS: CREATINE KINASE 116 Units/L (39-308)
[2020-03-01] MEDS: SNACK - Diabetic Appropriate PO SCH (20:43)
[2020-03-01] MEDS: LIPITOR TAB 40 MG PO SCH (20:44)
[2020-03-01] MEDS: NORCO 5/325 MG TAB PO PRN (20:45)
[2020-03-01] MEDS: RESTORIL CAP 15 MG PO PRN (20:45)
[2020-03-01] MEDS ORDERED: LEVEMIR SC SCH (21:00)
[2020-03-02] MEDS ORDERED: NS 1000 ML 1,000 ML ONE (00:32)
[2020-03-02] MEDS: NS 1000 ML 1,000 ML IV SCH ×3 (00:38→17:38)
[2020-03-02 05:27] LABS: BASOPHILS # (AUTO) 0.1 X10^3/uL (0.0-0.1); BASOPHILS % (AUTO) 0.8 % (0.2-1.0); EOSINOPHILS # (AUTO) 0.2 x10^3/uL (0.0-0.2); HEMATOCRIT 42.7 % (42.0-54.0); HEMOGLOBIN 14.9 g/dL (13.5-18.0); LYMPHOCYTES # (AUTO) 2.5 X10^3/uL (1.3-2.9); LYMPHOCYTES % (AUTO) 36.7 % (21.0-51.0); MEAN CORPUSCULAR HEMOGLOBIN 28.6 pg (27.0-34.0); MEAN CORPUSCULAR HGB CONC 34.9 g/dL (33.0-35.0); MEAN CORPUSCULAR VOLUME 82.1 fL (80.0-100.0); MEAN PLATELET VOLUME 8.6 fL (7.4-11.0); MONOCYTES # (AUTO) 0.5 x10^3/uL (0.3-0.8); MONOCYTES % (AUTO) 6.8 % (0.0-13.0); NEUTROPHILS # (AUTO) 3.5 x10^3/uL (2.2-4.8); NEUTROPHILS % (AUTO) 52.7 % (42.0-75.0); PLATELET COUNT 221 X10^3/uL (150.0-450.0); RED CELL DISTRIBUTION WIDTH 14.2 % (11.6-16.5); WHITE BLOOD COUNT 6.7 X10^3/uL (3.6-10.0)
[2020-03-02 07:26] LABS: eGFR NON BLACK RACES > 60 (>60)
[2020-03-02 07:29] LABS: BLOOD UREA NITROGEN 9.6 mg/dL (7-18); CARBON DIOXIDE 21.2 mmol/L (21-32); CHLORIDE 96 mmol/L (98-107); CREATININE 0.31 mg/dL (0.70-1.30); SODIUM 129 mmol/L (136-145)
[2020-03-02 07:30] LABS: ALANINE AMINOTRANSFERASE 25.2 Units/L (12-78); ASPARTATE AMINO TRANSFERASE 13.2 Units/L (15-37); COR NA(FOR HYPERGLY) 129 mmol/L (136-145)
[2020-03-02 07:31] LABS: ALBUMIN 2.3 g/dL (3.4-5.0); ALKALINE PHOSPHATASE 42 Units/L (46-116); TOTAL PROTEIN 3.2 g/dL (6.4-8.2)
[2020-03-02 08:12] LABS: CALCIUM 8.4 mg/dL (8.5-10.1); COR CA(FOR HYPOALB) 9.8 mg/dL (8.5-10.1)
[2020-03-02] MEDS ORDERED: GLUCOPHAGE ONE (09:19)
[2020-03-02] MEDS ORDERED: LEVEMIR SC ONE (09:20)
--- NOTE | 2020-03-02 10:56 | PCM.PROG ---
Progress Note Progress Note for Day of Date of Exam: 03/02/20 Subjective Subjective: Patient is seen at bedside, reports still having nausea, diarrhea and abdominal pain. He states pain is worse on the right side. He has been admitted for hyponatremia, elevated triglycerides, hyperglycemia and chest pain. Patient has had negative troponins and EKG. Carotid U/S showed moderate atherosclerosis with no high-grade stenosis. ECHO showed LVH, EF 59%. Labs: Na:129 K:3.9 Glucose:177 Plan: will get a CTAP to rule out any acute process, increase levemir to 15 units BID, continue SSI. Continue IVF, monitor AM labs. Past Medical Family Social History Past Med/Fam/Surg Hx: No changes since H&P Allergies: Allergies No Known Drug Allergies Allergy (Verified 02/28/20 13:13) Review of Systems ROS: No change since H&P Vital Signs and I&O's Vital Signs: Temperature 97.5 F Pulse Rate [Right Brachial] 65 Pulse Rate 87 Respiratory Rate 18 Blood Pressure [Right Arm] 111/74 Blood Pressure 143/86 O2 Sat by Pulse Oximetry 96 Intake and Output: Intake & Output 02/28/20 02/29/20 03/01/20 03/02/20 23:59 23:59 23:59 23:59 Intake Total 1570 / 1570 2335 / 2335 2960 / 2960 1000 / 1000 Balance 1570 / 1570 2335 / 2335 2960 / 2960 1000 / 1000 Physical Exam Oriented: Normal Eyes: Normal Ear: Normal Nose: Normal Throat: Normal Respiratory: Generalized and Diminished Cardiovascular: Normal Auscultation: Bowel Sounds: Normal Tenderness: RUQ and Mild Skin: Normal Musculoskeletal: Normal Psychiatric: Normal Mood Description: Calm Affect: Normal Speech Pattern: Clear and Appropriate Laboratory and Diagnostics Result Diagrams: 03/02/20 04:00 03/02/20 04:00 Labs: Laboratory WBC 6.7 X10^3/uL (3.6-10.0) 03/02/20 04:00 RBC 5.20 X10^6/uL (4.7-6.0) 03/02/20 04:00 Hgb 14.9 g/dL (13.5-18.0) 03/02/20 04:00 Hct 42.7 % (42.0-54.0) 03/02/20 04:00 MCV 82.1 fL (80.0-100.0) 03/02/20 04:00 MCH 28.6 pg (27.0-34.0) 03/02/20 04:00 MCHC 34.9 g/dL (33.0-35.0) 03/02/20 04:00 RDW 14.2 % (11.6-16.5) 03/02/20 04:00 Plt Count 221 X10^3/uL (150.0-450.0) 03/02/20 04:00 Plt Count Comment Adequate (ADEQUATE) 03/01/20 05:40 MPV 8.6 fL (7.4-11.0) 03/02/20 04:00 Neut % (Auto) 52.7 % (42.0-75.0) 03/02/20 04:00 Lymph % (Auto) 36.7 % (21.0-51.0) 03/02/20 04:00 [place] % (Auto) 6.8 % (0.0-13.0) 03/02/20 04:00 Eos % (Auto) 3.0 % (0.9-2.9) H 03/02/20 04:00 Baso % (Auto) 0.8 % (0.2-1.0) 03/02/20 04:00 Neut # (Auto) 3.5 x10^3/uL (2.2-4.8) 03/02/20 04:00 Lymph # (Auto) 2.5 X10^3/uL (1.3-2.9) 03/02/20 04:00 [place] # (Auto) 0.5 x10^3/uL (0.3-0.8) 03/02/20 04:00 Eos # (Auto) 0.2 x10^3/uL (0.0-0.2) 03/02/20 04:00 Baso # (Auto) 0.1 X10^3/uL (0.0-0.1) 03/02/20 04:00 Absolute Nucleated RBC 0.7 /100WBC 03/02/20 04:00 Plt Morphology Comment Normal (NORMAL) 03/01/20 05:40 RBC Morphology Normal (NORMAL) 03/01/20 05:40 PT 12.4 SECONDS (11.8-14.3) 02/29/20 05:16 INR Target Range - 02/29/20 05:16 INR 0.95 (0.8-1.3) 02/29/20 05:16 D-Dimer < 100 ng/mL (0-400) 02/28/20 14:23 Sodium 129 mmol/L (136-145) L 03/02/20 04:00 Corrected Sodium 129 mmol/L (136-145) L 03/02/20 04:00 Potassium 3.9 mmol/L (3.5-5.1) 03/02/20 04:00 Chloride 96 mmol/L (98-107) L 03/02/20 04:00 Carbon Dioxide 21.2 mmol/L (21-32) 03/02/20 04:00 BUN 9.6 mg/dL (7-18) 03/02/20 04:00 Creatinine 0.31 mg/dL (0.70-1.30) L 03/02/20 04:00 Est GFR (MDRD) Af Amer > 60 (>60) 03/02/20 04:00 Est GFR (MDRD) Non-Af > 60 (>60) 03/02/20 04:00 Glucose 114 mg/dL (65-99) H 03/02/20 04:00 POC Glucose (mg/dL) 177 mg/dL (65-99) H 03/02/20 05:20 Hemoglobin A1c Cancelled 02/29/20 14:17 Calcium 8.4 mg/dL (8.5-10.1) L 03/02/20 04:00 Corrected Calcium 9.8 mg/dL (8.5-10.1) 03/02/20 04:00 Magnesium 1.6 mg/dL (1.7-2.9) L 02/28/20 14:23 Total Bilirubin 0.12 mg/dL (0.2-1.0) L 03/02/20 04:00 AST 13.2 Units/L (15-37) L 03/02/20 04:00 ALT 25.2 Units/L (12-78) 03/02/20 04:00 Alkaline Phosphatase 42 Units/L (46-116) L 03/02/20 04:00 Creatine Kinase 116 Units/L (39-308) 03/01/20 18:17 CK-MB (CK-2) < 1.0 ng/mL (0-4.0) 03/01/20 18:17 CK/CKMB % Calc 0.9 % (<4) 03/01/20 18:17 Troponin I < 0.02 ng/mL (0-1.5) 03/01/20 18:17 Total Protein 3.2 g/dL (6.4-8.2) L 03/02/20 04:00 Albumin 2.3 g/dL (3.4-5.0) L 03/02/20 04:00 Globulin 1.1 g/dL (2.5-4.5) L 03/02/20 04:00 Albumin/Globulin Ratio 2.6 Ratio (1.1-2.1) H 03/02/20 04:00 Triglycerides 3349 mg/dL (0-150) H 02/29/20 05:16 Cholesterol TNP 02/29/20 05:16 LDL Cholesterol, Calc TNP 02/29/20 05:16 HDL Cholesterol 35 mg/dL (40-60) L 02/29/20 05:16 Cholesterol/HDL Ratio TNP 02/29/20 05:16 Amylase 27 Units/L (25-115) 02/28/20 14:23 Lipase 90 Units/L (73-393) 02/28/20 14:23 Specimen Type Clean catch urine 02/28/20 14:12 Urine Color Yellow (YELLOW) 02/28/20 14:12 Urine Appearance Clear (CLEAR) 02/28/20 14:12 Urine pH 5.0 (5.0 - 8.0) 02/28/20 14:12 Ur Specific [place] 1.015 (1.000-1.030) 02/28/20 14:12 Urine Protein Negative (NEGATIVE) 02/28/20 14:12 Urine Glucose (UA) 4+ (NEGATIVE) 02/28/20 14:12 Urine Ketones 1+ (NEGATIVE) 02/28/20 14:12 Urine Occult Blood Negative (NEGATIVE) 02/28/20 14:12 Urine Nitrite Negative (NEGATIVE) 02/28/20 14:12 Urine Bilirubin Negative (NEGATIVE) 02/28/20 14:12 Urine Urobilinogen Normal (NORMAL) 02/28/20 14:12 Ur Leukocyte Esterase Negative (NEGATIVE) 07/08/20 14:12 Stool H. pylori Ag Negative (NEGATIVE) 02/29/20 08:30 Plan (1) Acute hyponatremia: Status: Acute Plan: NS AT 125ML/HR, HUMULIN R SLIDING SCALE, LEVEMIR 12 UNITS SC BID, TRICOR 160MG PO DAILY, ZOFRAN 4MG IV Q8H PRN, NITROSTAT PRN, AND HIS HOME MEDICATIONS WERE RESUMED (2) Chest pain: Status: Acute Qualifiers: Chest pain type: unspecified Qualified Code(s): R07.9 - Chest pain, unspecified (3) Elevated triglycerides with high cholesterol: Status: Acute (4) HTN (hypertension): Status: Acute Qualifiers: Hypertension type: essential hypertension Qualified Code(s): I10 - Essential (primary) hypertension (5) Type 2 diabetes mellitus with hyperglycemia, with long-term current use of insulin: Status: Chronic
[2020-03-02] MEDS: GLUCOPHAGE PO SCH (11:03)
[2020-03-02] MEDS: LEVEMIR SC SCH ×2 (11:06→20:47)
[2020-03-02] MEDS: LOPRESSOR TAB 50 MG PO SCH ×2 (11:09→20:45)
[2020-03-02] MEDS: TRICOR TAB 160 MG PO SCH (11:09)
[2020-03-02] MEDS: ASPIRIN PO SCH (11:11)
[2020-03-02] MEDS: LOVENOX INJ 40 MG SYR SC SCH (11:15)
[2020-03-02] MEDS ORDERED: BUTT CREAM (COMPOUND) ONE (11:20)
[2020-03-02] MEDS: NORCO 5/325 MG TAB PO PRN ×2 (11:27→20:45)
[2020-03-02] MEDS ORDERED: BUTT CREAM (COMPOUND) TOP PRN (11:30)
--- NOTE | 2020-03-02 15:08 | CT ---
HISTORYAbdominal pain, diarrheaSTUDYABDOMEN/PELVIS WITH CONCOMPARISONNone availableTECHNIQUEMultiple axial images of the abdomen and pelvis were obtained from the lung bases to the pubic symphysis after the administration of IV contrast. Dose reduction techniques including Automated Exposure Control (AEC) and adjustment of mA and kV were utilized.FINDINGS[The lung bases are clear.] Suspected hepatic steatosis with hepatomegaly measuring approximately 21.6 cm in craniocaudal dimension. No focal hepatic lesion. The gallbladder and bilateral ducts are normal. The spleen is enlarged measuring approximately 16.7 cm. No focal splenic lesion is identified. Pancreas and adrenal glands are normal. Neither kidney demonstrates evidence of nephrolithiasis, hydronephrosis or mass.Upper GI tract demonstrates no evidence of mass or obstruction. Urinary bladder is normal. Prostate gland is normal in size with central dystrophic calcification. Small left-sided fat containing inguinal hernia. The rectum and colon are unremarkable. Suspected mild thickening of the distal ileum seen on coronal image 34. The appendix is absent. Abdominal aorta is normal in caliber. Small fat containing periumbilical hernia. No enlarged abdominal or pelvic lymph node. Shotty mesenteric and retroperitoneal lymph nodes. Mild scarring/inflammation within the lower anterior abdominal wall.Review of bone windows demonstrates no acute osseous abnormality. Bilateral L5 spondylolysis with grade 1 anterolisthesis of L5. There is [id number] bilateral bony neural foraminal stenosis.IMPRESSIONSuspected hepatic steatosis with hepatosplenomegaly needs clinical correlation. No hepatic or splenic lesion.Suspected mild thickening of the distal ileum suggests an acute enteritis/terminal ileitis. There is no convincing bowel wall thickening of the colon or rectum.Mild inflammatory change within the lower anterior abdominal wall with subcutaneous gas likely in the setting of recent trauma and/or injection site, clinical correlation is needed to exclude soft tissue infection.Multiple additional incidental, nonacute findings as described above.Electronically signed by: CÉSAR KUNZ (Mar 02, 2020 15:06:30)
[2020-03-02] MEDS ORDERED: SOLU-Medrol 125 MG VIAL ONE (19:00)
[2020-03-02] MEDS: SOLU-Medrol 125 MG VIAL IVP SCH ×2 (19:04→20:45)
[2020-03-02] MEDS: ROCEPHIN VIAL 1 GRAM 1 G in NS 100 ML IV + SPIKE MINIBAG* 100 ML IV SCH (19:04)
[2020-03-02] MEDS: FLAGYL IV PREMIX 500 MG BAG 500 MG/100 ML BAG IV SCH (19:57)
[2020-03-02] MEDS: SNACK - Diabetic Appropriate PO SCH (20:44)
[2020-03-02] MEDS: LIPITOR TAB 40 MG PO SCH (20:45)
[2020-03-02] MEDS: RESTORIL CAP 15 MG PO PRN (20:46)
[2020-03-02] MEDS ORDERED: NITROSTAT SL PRN (23:05)
[2020-03-03] MEDS: FLAGYL IV PREMIX 500 MG BAG 500 MG/100 ML BAG IV SCH ×2 (00:40→09:11)
[2020-03-03] MEDS: NS 1000 ML 1,000 ML IV SCH ×2 (00:40→10:53)
[2020-03-03 05:29] LABS: BASOPHILS # (AUTO) 0.1 X10^3/uL (0.0-0.1); MONOCYTES # (AUTO) 0.2 x10^3/uL (0.3-0.8); RED CELL DISTRIBUTION WIDTH 14.4 % (11.6-16.5); WHITE BLOOD COUNT 8.9 X10^3/uL (3.6-10.0)
[2020-03-03 05:39] LABS: BASOPHILS % (AUTO) 0.7 % (0.2-1.0); EOSINOPHILS % (AUTO) 0.2 % (0.9-2.9); HEMATOCRIT 45.2 % (42.0-54.0); HEMOGLOBIN 15.4 g/dL (13.5-18.0); MEAN CORPUSCULAR HEMOGLOBIN 27.5 pg (27.0-34.0); MEAN CORPUSCULAR HGB CONC 34.1 g/dL (33.0-35.0); MEAN CORPUSCULAR VOLUME 80.6 fL (80.0-100.0); MEAN PLATELET VOLUME 8.6 fL (7.4-11.0); MONOCYTES % (AUTO) 2.1 % (0.0-13.0); NEUTROPHILS # (AUTO) 7.6 x10^3/uL (2.2-4.8); PLATELET COUNT 238 X10^3/uL (150.0-450.0); RED BLOOD COUNT 5.61 X10^6/uL (4.7-6.0)
[2020-03-03] MEDS: HumuLIN R SUBCUT PRN (05:41)
[2020-03-03 05:49] LABS: CARBON DIOXIDE 22.7 mmol/L (21-32); CHLORIDE 95 mmol/L (98-107); SODIUM 128 mmol/L (136-145)
[2020-03-03 05:56] LABS: eGFR NON BLACK RACES > 60 (>60)
[2020-03-03 06:02] LABS: CALCIUM 8.6 mg/dL (8.5-10.1); COR NA(FOR HYPERGLY) 131 mmol/L (136-145); CREATININE 0.54 mg/dL (0.70-1.30)
[2020-03-03 06:03] LABS: ASPARTATE AMINO TRANSFERASE 59 Units/L (15-37)
[2020-03-03 06:04] LABS: ALBUMIN 3.7 g/dL (3.4-5.0)
[2020-03-03 06:05] LABS: BLOOD UREA NITROGEN 10 mg/dL (7-18)
[2020-03-03 06:06] LABS: ALANINE AMINOTRANSFERASE 84 Units/L (12-78); ALKALINE PHOSPHATASE 66 Units/L (46-116); TOTAL PROTEIN 6.5 g/dL (6.4-8.2)
[2020-03-03] MEDS ORDERED: LEVEMIR SC SCH (09:00)
[2020-03-03] MEDS ORDERED: LEVEMIR SC ONE (09:06)
[2020-03-03] MEDS: ROCEPHIN VIAL 1 GRAM 1 G in NS 100 ML IV + SPIKE MINIBAG* 100 ML IV SCH (09:12)
[2020-03-03] MEDS: SOLU-Medrol 125 MG VIAL IVP SCH (09:12)
[2020-03-03] MEDS: LOPRESSOR TAB 50 MG PO SCH (09:12)
[2020-03-03] MEDS: LOVENOX INJ 40 MG SYR SC SCH (09:13)
[2020-03-03] MEDS: ASPIRIN PO SCH (09:13)
[2020-03-03] MEDS: TRICOR TAB 160 MG PO SCH (09:13)
--- NOTE | 2020-03-03 10:39 | W.DIS.FURT ---
Summary of Discharge Admission Diagnosis Patient Problems (Updated 02/29/20 @ 23:03 by Chase Madrigal) Chest pain (Acute) R07.9 Acute hyponatremia (Acute) E87.1 Type 2 diabetes mellitus with hyperglycemia, with long-term current use of insulin (Chronic) E11.65, Z79.4 HTN (hypertension) (Acute) I10 Elevated triglycerides with high cholesterol (Acute) E78.2 Vital Signs: Vital Signs (72 hours) 02/29/20 11:47 02/29/20 12:00 02/29/20 12:47 Temperature 98.3 F Pulse Rate [Right Brachial] 76 Respiratory Rate 20 20 20 Blood Pressure [Right Arm] 112/65 O2 Sat by Pulse Oximetry 97 02/29/20 14:52 02/29/20 15:22 02/29/20 16:00 Temperature 97.7 F Pulse Rate [Right Brachial] 72 Respiratory Rate 22 20 20 Blood Pressure [Right Arm] 132/81 O2 Sat by Pulse Oximetry 97 02/29/20 19:40 02/29/20 20:00 02/29/20 20:10 Temperature 97.8 F Pulse Rate [Right Brachial] 73 Respiratory Rate 21 18 21 Blood Pressure [Right Arm] 128/82 O2 Sat by Pulse Oximetry 99 02/29/20 23:57 03/01/20 04:00 03/01/20 08:00 Temperature 98.0 F 97.6 F 97.6 F Pulse Rate [Right Brachial] 70 65 79 Respiratory Rate 20 18 18 Blood Pressure [Right Arm] 118/78 113/69 136/77 O2 Sat by Pulse Oximetry 99 97 99 03/01/20 08:45 03/01/20 09:15 03/01/20 12:00 Temperature 97.8 F Pulse Rate [Right Brachial] 58 L Respiratory Rate 22 19 18 Blood Pressure [Right Arm] 114/67 O2 Sat by Pulse Oximetry 96 03/01/20 16:00 03/01/20 17:20 03/01/20 17:50 Temperature 97.8 F Pulse Rate [Right Brachial] 70 Respiratory Rate 20 18 18 Blood Pressure [Right Arm] 136/77 O2 Sat by Pulse Oximetry 96 03/01/20 20:00 03/01/20 20:45 03/01/20 21:45 Temperature 97.5 F L Pulse Rate [Right Brachial] 76 Respiratory Rate 18 18 19 Blood Pressure [Right Arm] 122/79 O2 Sat by Pulse Oximetry 98 03/01/20 23:49 03/02/20 04:00 03/02/20 08:00 Temperature 97.6 F 97.5 F L 97.4 F L Pulse Rate [Right Brachial] 70 65 20 L Respiratory Rate 20 18 20 Blood Pressure [Right Arm] 121/84 111/74 125/83 O2 Sat by Pulse Oximetry 97 96 96 03/02/20 11:27 03/02/20 12:00 03/02/20 12:27 Temperature 97.5 F L Pulse Rate [Right Brachial] 68 Respiratory Rate 18 18 18 Blood Pressure [Right Arm] 132/82 O2 Sat by Pulse Oximetry 99 03/02/20 16:00 03/02/20 20:00 03/02/20 20:45 Temperature 97.7 F 97.6 F Pulse Rate [Right Brachial] 70 71 Respiratory Rate 20 20 19 Blood Pressure [Right Arm] 126/83 132/86 O2 Sat by Pulse Oximetry 100 98 03/02/20 21:45 03/03/20 00:00 03/03/20 04:00 Temperature 97.8 F 97.9 F Pulse Rate [Right Brachial] 73 62 Respiratory Rate 18 20 20 Blood Pressure [Right Arm] 125/79 138/72 O2 Sat by Pulse Oximetry 96 97 Labs: Laboratory Last Values WBC 8.9 X10^3/uL (3.6-10.0) 03/03/20 04:10 RBC 5.61 X10^6/uL (4.7-6.0) 03/03/20 04:10 Hgb 15.4 g/dL (13.5-18.0) 03/03/20 04:10 Hct 45.2 % (42.0-54.0) 03/03/20 04:10 MCV 80.6 fL (80.0-100.0) 03/03/20 04:10 MCH 27.5 pg (27.0-34.0) 03/03/20 04:10 MCHC 34.1 g/dL (33.0-35.0) 03/03/20 04:10 RDW 14.4 % (11.6-16.5) 03/03/20 04:10 Plt Count 238 X10^3/uL (150.0-450.0) 03/03/20 04:10 Plt Count Comment Adequate (ADEQUATE) 03/01/20 05:40 MPV 8.6 fL (7.4-11.0) 03/03/20 04:10 Neut % (Auto) 86.0 % (42.0-75.0) H 03/03/20 04:10 Lymph % (Auto) 11.0 % (21.0-51.0) L 03/03/20 04:10 [place] % (Auto) 2.1 % (0.0-13.0) 03/03/20 04:10 Eos % (Auto) 0.2 % (0.9-2.9) L 03/03/20 04:10 Baso % (Auto) 0.7 % (0.2-1.0) 03/03/20 04:10 Neut # (Auto) 7.6 x10^3/uL (2.2-4.8) H 03/03/20 04:10 Lymph # (Auto) 1.0 X10^3/uL (1.3-2.9) L 03/03/20 04:10 [place] # (Auto) 0.2 x10^3/uL (0.3-0.8) L 03/03/20 04:10 Eos # (Auto) 0.0 x10^3/uL (0.0-0.2) 03/03/20 04:10 Baso # (Auto) 0.1 X10^3/uL (0.0-0.1) 03/03/20 04:10 Absolute Nucleated RBC 0.1 /100WBC 03/03/20 04:10 Plt Morphology Comment Normal (NORMAL) 03/01/20 05:40 RBC Morphology Normal (NORMAL) 03/01/20 05:40 PT 12.4 SECONDS (11.8-14.3) 02/29/20 05:16 INR Target Range - 02/29/20 05:16 INR 0.95 (0.8-1.3) 02/29/20 05:16 D-Dimer < 100 ng/mL (0-400) 02/28/20 14:23 Sodium 128 mmol/L (136-145) L 03/03/20 04:10 Corrected Sodium 131 mmol/L (136-145) L 03/03/20 04:10 Potassium 4.4 mmol/L (3.5-5.1) 03/03/20 04:10 Chloride 95 mmol/L (98-107) L 03/03/20 04:10 Carbon Dioxide 22.7 mmol/L (21-32) 03/03/20 04:10 BUN 10 mg/dL (7-18) 03/03/20 04:10 Creatinine 0.54 mg/dL (0.70-1.30) L 03/03/20 04:10 Est GFR (MDRD) Af Amer > 60 (>60) 03/03/20 04:10 Est GFR (MDRD) Non-Af > 60 (>60) 03/03/20 04:10 Glucose 240 mg/dL (65-99) H 03/03/20 04:10 POC Glucose (mg/dL) 186 mg/dL (65-99) H 03/03/20 05:25 Hemoglobin A1c Cancelled 02/29/20 14:17 Calcium 8.6 mg/dL (8.5-10.1) 03/03/20 04:10 Corrected Calcium TNP 03/03/20 04:10 Magnesium 1.6 mg/dL (1.7-2.9) L 02/28/20 14:23 Total Bilirubin 0.48 mg/dL (0.2-1.0) 03/03/20 04:10 AST 59 Units/L (15-37) H 03/03/20 04:10 ALT 84 Units/L (12-78) H 03/03/20 04:10 Alkaline Phosphatase 66 Units/L (46-116) 03/03/20 04:10 Creatine Kinase 116 Units/L (39-308) 03/01/20 18:17 CK-MB (CK-2) < 1.0 ng/mL (0-4.0) 03/01/20 18:17 CK/CKMB % Calc 0.9 % (<4) 03/01/20 18:17 Troponin I < 0.02 ng/mL (0-1.5) 03/01/20 18:17 Total Protein 6.5 g/dL (6.4-8.2) 03/03/20 04:10 Albumin 3.7 g/dL (3.4-5.0) 03/03/20 04:10 Globulin 2.8 g/dL (2.5-4.5) 03/03/20 04:10 Albumin/Globulin Ratio 1.3 Ratio (1.1-2.1) 03/03/20 04:10 Triglycerides 3349 mg/dL (0-150) H 02/29/20 05:16 Cholesterol TNP 02/29/20 05:16 LDL Cholesterol, Calc TNP 02/29/20 05:16 HDL Cholesterol 35 mg/dL (40-60) L 02/29/20 05:16 Cholesterol/HDL Ratio TNP 02/29/20 05:16 Amylase 27 Units/L (25-115) 02/28/20 14:23 Lipase 90 Units/L (73-393) 02/28/20 14:23 Specimen Type Clean catch urine 02/28/20 14:12 Urine Color Yellow (YELLOW) 02/28/20 14:12 Urine Appearance Clear (CLEAR) 02/28/20 14:12 Urine pH 5.0 (5.0 - 8.0) 02/28/20 14:12 Ur Specific [place] 1.015 (1.000-1.030) 02/28/20 14:12 Urine Protein Negative (NEGATIVE) 02/28/20 14:12 Urine Glucose (UA) 4+ (NEGATIVE) 02/28/20 14:12 Urine Ketones 1+ (NEGATIVE) 02/28/20 14:12 Urine Occult Blood Negative (NEGATIVE) 02/28/20 14:12 Urine Nitrite Negative (NEGATIVE) 02/28/20 14:12 Urine Bilirubin Negative (NEGATIVE) 02/28/20 14:12 Urine Urobilinogen Normal (NORMAL) 02/28/20 14:12 Ur Leukocyte Esterase Negative (NEGATIVE) 02/28/20 14:12 Stool H. pylori Ag Negative (NEGATIVE) 02/29/20 08:30 Reason For Visit: HYPONATREMIA,DIABETES,CHEST PAIN,DIABETES Discharge Diagnosis All Active Problems (Updated 02/29/20 @ 23:03 by Chase Madrigal) Chest pain (Acute) Acute hyponatremia (Acute) Type 2 diabetes mellitus with hyperglycemia, with long-term current use of insulin (Chronic) HTN (hypertension) (Acute) Elevated triglycerides with high cholesterol (Acute) Plan of Treatment: Continue with present treatment and follow up plan. Pt is to keep follow up appointment as instructed and take medications as ordered. Discharge Medications Discharge Medications: No Known Drug Allergies Allergy (Verified 02/28/20 13:13) CONTINUE taking the following medications aspirin 325 mg PO DAILY 02/28/20 [History] atorvastatin 80 mg PO HS 02/28/20 [History] insulin aspart U-100 [Novolog U-100 Insulin aspart] 1 unit SUBCUT PRN PRN 02/28/20 [History] metformin 1,000 mg PO BID 02/28/20 [History] metoprolol tartrate 50 mg PO BID 02/28/20 [History] pioglitazone 15 mg PO DAILY 02/28/20 [History] New Prescriptions fenofibric acid (choline) [Trilipix] 135 mg PO QHS #30 cap 02/29/20 [Rx] ciprofloxacin HCl 500 mg PO BID 7 Days #14 tab 03/03/20 [Rx] hydrocodone-acetaminophen 1 tab PO Q8H PRN 3 Days #9 tab MDD 3 tablets 03/03/20 [Rx] insulin detemir U-100 [Levemir U-100 Insulin] 18 units SC BID 30 Days #10.8 ml 03/03/20 [Rx] metronidazole 500 mg PO TID 7 Days #21 tab 03/03/20 [Rx] ondansetron 4 mg PO Q8H PRN #14 tab 03/03/20 [Rx] prednisone See Rx Instructions .ROUTE .COMPLEX #21 ea 03/03/20 [Rx] Discharge Disposition Assessment: Stable no acute distress noted at time of discharge.
[2020-03-03 11:12] VITALS: BP 126/77
== END 2020-03-03 11:50 | disposition home or self-care (01) | DRG 641 ==
LOC: ER 13:03 → MED/SURG 13:03 → OBSVTOIN 17:02 → MED/SURG 17:14
PROVIDERS: ADMIT Internal Medicine; ATTEND Internal Medicine
DX: R10.84 Generalized abdominal pain; M62.81 Muscle weakness (generalized); E87.1 Hypo-osmolality and hyponatremia; R06.02 Shortness of breath; E11.65 Type 2 diabetes mellitus with hyperglycemia; R51 Headache; R07.89 Other chest pain; Z79.4 Long term (current) use of insulin
CPT/HCPCS: 36415; 71010; 71045; 74177; 80053; 80061; 81003; 82150; 82550; 82553; 83036; 83690; 83735; 84484; 85025; 85378; 85610; 87338; 93005; 93306; 93880; 94760; 96365; 99283; A4222; J0696; J1650; J1815; J2270; J2405; J2930; J7030; J7050; S0030

== ENCOUNTER 2023-08-24 11:42 | Inpatient (IN) ==
[2023-08-24] MEDS ORDERED: NS 1,000 ML IV 1,000 ML IV ONE (13:34)
[2023-08-24] MEDS ORDERED: ZOFRAN INJ 4 MG VIAL IVP PRN (13:34)
[2023-08-24] MEDS ORDERED: NS 1,000 ML IV 1,000 ML IV SCH (14:00)
[2023-08-24] MEDS ORDERED: CONSULT PHARMACY - POTASSIUM & MAGNESIUM XX SCH (14:00)
[2023-08-24 14:20] LABS: BASOPHILS # (AUTO) 0.1 X10^3/uL (0.0-0.1); LYMPHOCYTES # (AUTO) 1.1 X10^3/uL (1.3-2.9); MEAN PLATELET VOLUME 7.9 fL (7.4-11.0); MONOCYTES # (AUTO) 1.5 x10^3/uL (0.3-0.8); PLATELET COUNT 224 X10^3/uL (150.0-450.0); RED CELL DISTRIBUTION WIDTH 15.1 % (11.6-16.5)
[2023-08-24 14:26] LABS: BASOPHILS % (AUTO) 0.6 % (0.2-1.0); EOSINOPHILS # (AUTO) 0.1 x10^3/uL (0.0-0.2); EOSINOPHILS % (AUTO) 0.6 % (0.9-2.9); LYMPHOCYTES % (AUTO) 8.3 % (21.0-51.0); MEAN CORPUSCULAR HEMOGLOBIN 27.9 pg (27.0-34.0); MEAN CORPUSCULAR HGB CONC 33.3 g/dL (33.0-35.0); MEAN CORPUSCULAR VOLUME 83.6 fL (80.0-100.0); NEUTROPHILS # (AUTO) 10.7 x10^3/uL (2.2-4.8); NEUTROPHILS % (AUTO) 79.5 % (42.0-75.0); RED BLOOD COUNT 4.67 X10^6/uL (4.7-6.0); WHITE BLOOD COUNT 13.5 X10^3/uL (3.6-10.0)
[2023-08-24 14:34] LABS: ALBUMIN 2.1 g/dL (3.4-5.0); ALKALINE PHOSPHATASE 93 Units/L (46-116); AMYLASE 22 Units/L (25-115); BLOOD UREA NITROGEN 14 mg/dL (7-18); CARBON DIOXIDE 17.9 mmol/L (21-32); CHLORIDE 91 mmol/L (98-107); COR CA(FOR HYPOALB) 10.5 mg/dL (8.5-10.1); COR NA(FOR HYPERGLY) 130 mmol/L (136-145); GLUCOSE 281 mg/dL (65-99); LIPASE 56 Units/L (16-77); SODIUM 126 mmol/L (136-145); TOTAL PROTEIN 7.3 g/dL (6.4-8.2); eGFR NON BLACK RACES > 60 (>60)
[2023-08-24 14:37] VITALS: BMI 31.4
[2023-08-24 14:38] LABS: BAND NEUTROPHILS % 8 % (0-10); METAMYELOCYTES % 1; MYELOCYTES % 2; PLATELET MORPHOLOGY COMMENT NORMAL (NORMAL)
[2023-08-24 14:45] LABS: ALANINE AMINOTRANSFERASE 15 Units/L (12-78); ASPARTATE AMINO TRANSFERASE 27 Units/L (15-37)
[2023-08-24 14:46] LABS: POTASSIUM 4.1 mmol/L (3.5-5.1)
[2023-08-24] MEDS ORDERED: NovoLIN R (or HumuLIN R) SUBCUT PRN (15:23)
[2023-08-24] MEDS: PEPCID 20 MG VIAL 20 MG in NS 50 ML IV 50 ML IV SCH (15:46)
[2023-08-24] MEDS: NORCO 10/325 TAB PO PRN ×2 (15:47→21:28)
[2023-08-24] MEDS: NS 1,000 ML IV 1,000 ML with SODIUM BICARBONATE 8.4% INJ ADULT 100 ML IV SCH ×4 (16:02→23:16)
[2023-08-24] MEDS: MYXREDLIN 100 UNIT/100 ML BAG 100 UNIT/100 ML PLAST..BAG IV PRN (18:33)
[2023-08-24] MEDS: SNACK - Diabetic Appropriate PO SCH (19:59)
[2023-08-24] MEDS: GLUCOPHAGE PO SCH (20:34)
[2023-08-24] MEDS: LOPRESSOR TAB 50 MG PO SCH (20:34)
[2023-08-24] MEDS: PROTONIX INJ 40 MG VIAL IVP SCH (20:34)
[2023-08-24] MEDS: REGLAN TAB 10 MG PO SCH (20:35)
[2023-08-24] MEDS ORDERED: NS 1,000 ML IV 1,000 ML ONE (22:01)
[2023-08-25] MEDS: MORPHINE SULFATE INJ 2 MG INJ IVP PRN ×6 (02:19→23:45)
[2023-08-25 05:21] LABS: EOSINOPHILS # (AUTO) 0.1 x10^3/uL (0.0-0.2); EOSINOPHILS % (AUTO) 1.2 % (0.9-2.9); HEMOGLOBIN 11.7 g/dL (13.5-18.0)
[2023-08-25 05:26] LABS: SERUM ACETONE SMALL (NEGATIVE)
[2023-08-25 05:30] LABS: BASOPHILS % (AUTO) 0.2 % (0.2-1.0); HEMATOCRIT 34.9 % (42.0-54.0); LYMPHOCYTES % (AUTO) 9.4 % (21.0-51.0); MEAN CORPUSCULAR HEMOGLOBIN 27.7 pg (27.0-34.0); MEAN CORPUSCULAR HGB CONC 33.6 g/dL (33.0-35.0); MEAN CORPUSCULAR VOLUME 82.4 fL (80.0-100.0); MEAN PLATELET VOLUME 8.2 fL (7.4-11.0); MONOCYTES # (AUTO) 1.5 x10^3/uL (0.3-0.8); MONOCYTES % (AUTO) 13.4 % (0.0-13.0); NEUTROPHILS # (AUTO) 8.3 x10^3/uL (2.2-4.8); NEUTROPHILS % (AUTO) 75.8 % (42.0-75.0); PLATELET COUNT 201 X10^3/uL (150.0-450.0); RED BLOOD COUNT 4.24 X10^6/uL (4.7-6.0); WHITE BLOOD COUNT 10.9 X10^3/uL (3.6-10.0)
[2023-08-25] MEDS: NS 1,000 ML IV 1,000 ML with SODIUM BICARBONATE 8.4% INJ ADULT 100 ML IV SCH ×12 (05:33→23:50)
[2023-08-25 05:41] LABS: ALANINE AMINOTRANSFERASE 15 Units/L (12-78); ALBUMIN 1.8 g/dL (3.4-5.0); ALKALINE PHOSPHATASE 84 Units/L (46-116); ASPARTATE AMINO TRANSFERASE 19 Units/L (15-37); BLOOD UREA NITROGEN 11 mg/dL (7-18); CALCIUM 8.3 mg/dL (8.5-10.1); CARBON DIOXIDE 24.1 mmol/L (21-32); CHLORIDE 98 mmol/L (98-107); COR CA(FOR HYPOALB) 10.1 mg/dL (8.5-10.1); COR NA(FOR HYPERGLY) 135 mmol/L (136-145); CREATININE 0.52 mg/dL (0.70-1.30); GLUCOSE 173 mg/dL (65-99); MAGNESIUM 1.7 mg/dL (2.0-2.9); POTASSIUM 3.3 mmol/L (3.5-5.1); SODIUM 133 mmol/L (136-145); TOTAL PROTEIN 6.4 g/dL (6.4-8.2); eGFR NON BLACK RACES > 60 (>60)
[2023-08-25] MEDS ORDERED: CONSULT PHARMACY - POTASSIUM & MAGNESIUM XX SCH (07:00)
[2023-08-25] MEDS ORDERED: GLUCOPHAGE ONE ×2 (08:08→19:44)
[2023-08-25] MEDS: PEPCID 20 MG VIAL 20 MG in NS 50 ML IV 50 ML IV SCH ×2 (08:26→20:33)
[2023-08-25] MEDS: PROTONIX INJ 40 MG VIAL IVP SCH ×2 (08:26→19:59)
[2023-08-25] MEDS: TRICOR TAB 160 MG PO SCH (08:27)
[2023-08-25] MEDS: K-DUR TAB 20 MEQ PO SCH ×2 (08:27→11:32)
[2023-08-25] MEDS: COZAAR PO SCH (08:27)
[2023-08-25] MEDS: GLUCOPHAGE PO SCH ×2 (08:27→19:59)
[2023-08-25] MEDS: LOPRESSOR TAB 50 MG PO SCH ×2 (08:28→20:00)
[2023-08-25] MEDS: REGLAN TAB 10 MG PO SCH ×2 (08:28→19:59)
[2023-08-25] MEDS: NORCO 10/325 TAB PO PRN ×2 (08:28→17:31)
[2023-08-25] MEDS ORDERED: LEVEMIR SC SCH (09:00)
[2023-08-25] MEDS ORDERED: K-RIDER 10 MEQ/NS 100 ML 10 MEQ/100 ML BAG IV SCH (09:00)
[2023-08-25] MEDS: MYXREDLIN 100 UNIT/100 ML BAG 100 UNIT/100 ML PLAST..BAG IV PRN (09:01)
--- NOTE | 2023-08-25 10:09 | DR.H&P ---
H&P - History & Physical for Day of: H&P Date: 08/24/23 - Chief Complaint Chief Complaint: ABDOMINAL PAIN, N/V - History of Present Illness History of Present Illness: WAS A DIRECT ADMISSION TO THE HOSPITAL FOR FURTHER EVALUATION AND TREATMENT OF ABDOMINAL PAIN, NAUSEA, VOMITING, AND GENERALIZED WEAKNESS. PATIENT REPORTS THAT HIS SYMPTOMS STARTED ABOUT FIVE DAYS AGO. PAIN IS LOCATED IN THE SUPRAPUBIC REGION. HE DESCRIBES PAIN SHARP AND CRAMPING. HE RATES PAIN A 6/10 ON ADMISSION. MEDICAL HX INCLUDES: MN IN 2007 AND 2008, ANGINA, HYPERLIPIDEMIA, HTN, SLEEP APNEA, CHRONIC PANCREATITS, DM II, APPENDECTOMY. ON ARRIVAL TO THE HOSPITAL, HIS VITALS WERE: 98.8-128-22-96%-161/93. LABS WERE OBTAINED. WBC 13.5, RBC 4.67, HGB 13.0, HCT 39.0, PLT COUNT 224, SODIUM 124, POTASSIUM 4.1, CHLORIDE 91, CARBON DIOXIDE 17.9, BUN 14, CREATININE 0.70, GLUCOSE 281, A1C 13.2, CALCIUM 9.0, MAGNESIUM 1.7, TOTAL BILI 1.10, AST 27, ALT 15, ALK PHOS 93, TOTAL PROTEIN 7.3, ALBUMIN 2.1, GLOBULIN 5.2, AMYLASE 22, LIPASE 56. SERUM ACETONES LARGE. AN ABG WAS OBTAINED AND REVEALED: PH 7.440, PC02 28, P02 68, HC03 19.0, 02 SAT 94, A-A GRADIENT 47, FI02 21.0. ON ADMISSION, HE WAS STARTED ON NORMAL SALINE WITH 2 AMPS BICARB IN EACH LITER AT 150 ML/HR, AN INSULIN DRIP, PEPCID 20MG IV BID, PROTONIX 40MG IV BID, GI COCKTAIL 15ML QID, MORPHINE SULFATE 1-2MG IV Q4H PRN, OTBS Q1H, THE POTASSIUM AND MAGNESIUM PROTOCOLS, AND ZOFRAN 4MG IV Q4H PRN. WE RESUMED HIS HOME MEDICATIONS OF TRICOR, CREON, NORCO, COZAAR, METFORMIN, REGLAN, LOPRESSOR. OTHERWISE, WE PLAN TO FOLLOW-UP WITH AM LABS AND CONTINUE TO MONITOR. TIME SPENT ON CLINICAL ASSESSMENT, REVIEWING LABS AND IMAGING, DECISION MAKING, AND DOCUMENTATION GREATER THAN 75 MINUTES. - Past Medical History Past Medical History: Angina, Diabetes, Dyslipidemia, Hypertension, [place], Sleep Apnea Additional Medical History: CHRONIC PANCREATITIS - Past Surgical History Surgical History: Appendectomy, Other - Social History Does patient currently use any type of tobacco product: No Have you used tobacco products in the last 12 months: No Type of Tobacco Use: None Does any household member use tobacco: No Alcohol Use: None Drug Use: None - Review of Systems Constitutional: No Symptoms Reported Eyes: No Symptoms Reported ENT: No Symptoms Reported Respiratory: No Symptoms Reported Cardiovascular: No Symptoms Reported Gastrointestinal: See HPI, Nausea, Vomiting, Abdominal Pain Genitourinary: No Symptoms Reported Musculoskeletal: No Symptoms Reported Skin: No Symptoms Reported Neurological: Weakness - Physical Exam Vital Signs: Vital Signs Pulse Rate 101 Pulse Rate 101 Pulse Rate 107 Pulse Rate 102 Pulse Rate 101 Pulse Rate 103 Pulse Rate 103 Respiratory Rate 18 Respiratory Rate 21 Respiratory Rate 22 Respiratory Rate 15 Respiratory Rate 26 Respiratory Rate 28 Respiratory Rate 20 Respiratory Rate 20 Respiratory Rate 15 Respiratory Rate 17 Blood Pressure 162/80 Blood Pressure 194/88 Blood Pressure 146/90 Blood Pressure 166/87 Blood Pressure 171/97 Blood Pressure 165/103 Blood Pressure 177/110 O2 Sat by Pulse Oximetry 95 O2 Sat by Pulse Oximetry 95 O2 Sat by Pulse Oximetry 95 O2 Sat by Pulse Oximetry 92 O2 Sat by Pulse Oximetry 94 O2 Sat by Pulse Oximetry 98 O2 Sat by Pulse Oximetry 95 Oriented: Normal Eyes: Normal Ear: Normal Nose: Normal Throat: Normal Respiratory: Clear Throughout Cardiovascular: Tachycardia : Normal Auscultation: Bowel Sounds: Normal Palpation: Normal Tenderness: Suprapubic, Moderate Skin: Decreased [place] Musculoskeletal: Normal Psychiatric: Normal Mood Description: Calm Affect: Normal Speech Pattern: Clear - Assessment/Plan (1) DKA (diabetic ketoacidosis) Qualifiers: Diabetes mellitus type: type 2 Diabetes mellitus complication detail: without coma Qualified Code(s): E11.10 - Type 2 diabetes mellitus with ketoacidosis without coma Status: Acute Plan: ADMIT, NORMAL SALINE WITH 2 AMPS BICARB IN EACH LITER AT 150 ML/HR, AN INSULIN DRIP, PEPCID 20MG IV BID, PROTONIX 40MG IV BID, GI COCKTAIL 15ML QID, MORPHINE SULFATE 1-2MG IV Q4H PRN, OTBS Q1H, THE POTASSIUM AND MAGNESIUM PROTOCOLS, AND ZOFRAN 4MG IV Q4H PRN. WE RESUMED HIS HOME MEDICATIONS OF TRICOR, CREON, NORCO, COZAAR, METFORMIN, REGLAN, LOPRESSOR. (2) Acute hyponatremia Status: Acute (3) Abdominal pain Qualifiers: Abdominal location: lower abdomen, unspecified Qualified Code(s): R10.30 - Lower abdominal pain, unspecified Status: Acute (4) Nausea and vomiting Status: Acute (5) Hyperlipidemia Qualifiers: Hyperlipidemia type: mixed hyperlipidemia Qualified Code(s): E78.2 - Mixed hyperlipidemia Status: Chronic (6) Chronic pancreatitis Qualifiers: Pancreatitis type: unspecified pancreatitis type Qualified Code(s): K86.1 - Other chronic pancreatitis Status: Chronic (7) GERD (gastroesophageal reflux disease) Qualifiers: Esophagitis presence: esophagitis presence not specified Qualified Code(s): K21.9 - Gastro-esophageal reflux disease without esophagitis Status: Acute (8) HTN (hypertension) Qualifiers: Hypertension type: primary hypertension Qualified Code(s): I10 - Essential (primary) hypertension Status: Chronic - Allergies Allergies/Adverse Reactions: Allergies Allergy/AdvReac Type Severity Reaction Status Date / Time No Known Drug Allergies Allergy Verified 02/28/20 13:13 - Medications Home Medications: Home Medications Medication Instructions Recorded Confirmed metoprolol tartrate 50 mg tablet 50 mg PO BID 02/28/20 08/24/23 (Lopressor) ergocalciferol (vitamin D2) 1,250 1,250 mcg PO QWEEK 08/24/23 08/24/23 mcg (50,000 unit) capsule (Vitamin D2) fenofibrate 160 mg tablet 160 mg PO QDAY 08/24/23 08/24/23 hydrocodone 10 mg-acetaminophen 1 tab PO QID PRN 08/24/23 08/24/23 325 mg tablet insulin degludec 200 unit/mL (3 55 unit subcut QDAY 08/24/23 08/24/23 mL) subcutaneous pen (Tresiba FlexTouch U-200 insulin) insulin lispro-aabc 200 unit/mL (3 25 unit subcut TID 08/24/23 08/24/23 mL) subcutaneous pen (Lyumjev KwikPen U-200 Insulin) dacvdf-uthukjrk-dpyjwkd 2 cap PO TID 08/24/23 08/24/23 36,000-114,000-180,000 unit capsule,delay rel (Creon) losartan 100 mg tablet (Cozaar) 100 mg PO QDAY 08/24/23 08/24/23 metformin 1,000 mg tablet 1,000 mg PO BID 08/24/23 08/24/23 metoclopramide HCl 10 mg tablet 10 mg PO BID 08/24/23 08/24/23 (Reglan) pantoprazole 40 mg tablet,delayed 40 mg PO BID 08/24/23 08/24/23 release
[2023-08-25] MEDS ORDERED: NS 250 ML IV 250 ML IV ONE ×2 (11:24→18:58)
[2023-08-25] MEDS: LEVSIN/MAALOX/LIDOC VISC PO SCH ×4 (11:33→20:35)
[2023-08-25] MEDS: MAGNESIUM SULFATE 1 GRAM/100 mL PREMIX 1 G/100 ML BAG IV SCH ×2 (11:34→12:48)
[2023-08-25] MEDS: SNACK - Diabetic Appropriate PO SCH (19:59)
[2023-08-26] MEDS: MYXREDLIN 100 UNIT/100 ML BAG 100 UNIT/100 ML PLAST..BAG IV PRN (02:10)
[2023-08-26] MEDS: NS 1,000 ML IV 1,000 ML with SODIUM BICARBONATE 8.4% INJ ADULT 100 ML IV SCH ×4 (02:32→09:12)
[2023-08-26 05:07] LABS: BASOPHILS % (AUTO) 0.5 % (0.2-1.0); EOSINOPHILS # (AUTO) 0.1 x10^3/uL (0.0-0.2); EOSINOPHILS % (AUTO) 0.8 % (0.9-2.9); HEMATOCRIT 32.7 % (42.0-54.0); LYMPHOCYTES % (AUTO) 11.2 % (21.0-51.0); MEAN CORPUSCULAR HEMOGLOBIN 27.8 pg (27.0-34.0); MEAN CORPUSCULAR HGB CONC 33.8 g/dL (33.0-35.0); MEAN CORPUSCULAR VOLUME 82.2 fL (80.0-100.0); MONOCYTES # (AUTO) 1.6 x10^3/uL (0.3-0.8); MONOCYTES % (AUTO) 18.6 % (0.0-13.0); NEUTROPHILS # (AUTO) 5.9 x10^3/uL (2.2-4.8); NEUTROPHILS % (AUTO) 68.9 % (42.0-75.0); PLATELET COUNT 172 X10^3/uL (150.0-450.0); RED BLOOD COUNT 3.97 X10^6/uL (4.7-6.0); RED CELL DISTRIBUTION WIDTH 15.2 % (11.6-16.5); WHITE BLOOD COUNT 8.5 X10^3/uL (3.6-10.0)
[2023-08-26 05:12] LABS: ALANINE AMINOTRANSFERASE 14 Units/L (12-78); ALBUMIN 1.7 g/dL (3.4-5.0); ALKALINE PHOSPHATASE 70 Units/L (46-116); ASPARTATE AMINO TRANSFERASE 14 Units/L (15-37); BLOOD UREA NITROGEN 9 mg/dL (7-18); CALCIUM 8.1 mg/dL (8.5-10.1); CARBON DIOXIDE 30.2 mmol/L (21-32); CHLORIDE 95 mmol/L (98-107); COR CA(FOR HYPOALB) 9.9 mg/dL (8.5-10.1); COR NA(FOR HYPERGLY) 134 mmol/L (136-145); CREATININE 0.55 mg/dL (0.70-1.30); GLUCOSE 144 mg/dL (65-99); MAGNESIUM 1.8 mg/dL (2.0-2.9); POTASSIUM 3.2 mmol/L (3.5-5.1); SODIUM 133 mmol/L (136-145); TOTAL PROTEIN 6.1 g/dL (6.4-8.2); eGFR NON BLACK RACES > 60 (>60)
[2023-08-26] MEDS ORDERED: CONSULT PHARMACY - POTASSIUM & MAGNESIUM XX SCH (06:00)
[2023-08-26] MEDS ORDERED: GLUCOPHAGE ONE (07:33)
[2023-08-26] MEDS: MORPHINE SULFATE INJ 2 MG INJ IVP PRN ×4 (07:35→19:43)
[2023-08-26 08:59] LABS: ABG ALLEN TEST POS; ABG BASE EXCESS 5.7 mmol/L (-2.0-2.0); ABG HCO3 28.4 mmol/L (22-26)
[2023-08-26] MEDS ORDERED: K-DUR TAB 20 MEQ PO SCH (09:00)
[2023-08-26] MEDS: PROTONIX INJ 40 MG VIAL IVP SCH ×2 (09:29→20:05)
[2023-08-26] MEDS: PEPCID 20 MG VIAL 20 MG in NS 50 ML IV 50 ML IV SCH ×2 (09:29→20:03)
[2023-08-26] MEDS: MAG-OX TAB PO SCH ×2 (09:31→10:41)
[2023-08-26] MEDS: COZAAR PO SCH (09:33)
[2023-08-26] MEDS: LOPRESSOR TAB 50 MG PO SCH ×2 (09:33→20:03)
[2023-08-26] MEDS: REGLAN TAB 10 MG PO SCH ×2 (09:33→20:03)
[2023-08-26] MEDS: GLUCOPHAGE PO SCH (09:33)
[2023-08-26] MEDS: LEVSIN/MAALOX/LIDOC VISC PO SCH ×4 (09:34→20:03)
[2023-08-26] MEDS: TRICOR TAB 160 MG PO SCH (09:34)
[2023-08-26] MEDS: NORCO 10/325 TAB PO PRN ×2 (09:47→17:58)
[2023-08-26] MEDS ORDERED: NS 100 ML IV 100 ML ONE (10:02)
[2023-08-26] MEDS ORDERED: OMNIPAQUE 350 mg/mL 100 mL BTL 100 ML ONE (10:02)
[2023-08-26] MEDS: NS 1,000 ML IV 1,000 ML IV SCH ×3 (10:42→23:35)
--- NOTE | 2023-08-26 11:48 | PCM.PROG ---
Progress Note - Progress Note for Day of Date of Exam: 08/26/23 - Subjective Subjective: IS CURRENTLY INPATIENT STATUS FOR TREATMENT OF DKA, ACUTE HYPONATREMIA, ABDOMINAL PAIN, AND NAUSEA AND VOMITING. HE HAS A PMH OF HYPERLIPIDEMIA, CHRONIC PANCREATITIS, GERD, AND HTN. HE CONTINUES TO COMPLAIN OF LOWER ABDOMINAL PAIN AND INTERMITTENT NAUSEA, BUT DENIES VOMITING SINCE AD MISSION. NURSING STAFF REPORTS THAT HE HAS HAD AN UNEVENTFUL NIGHT. ON EXAMINATION, HEART IS REGULAR IN RATE AND RHYTHM. BILATERAL LUNGS ARE NOTED WITH DIMINISHED LUNG SOUNDS THROUGHOUT. ABDOMEN IS ROUND, SOFT, AND NOTED WITH LOWER QUADRANT TENDERNESS. NORMAL BOWEL SOUNDS ARE NOTED IN ALL QUADRANTS. HIS VITALS THIS MORNING ARE: 98.3-95-23-95%-145/88. LABS WERE OBTAINED. WBC 8.5, RBC 3.97, HGB 11.0, HCT 32.7, PLT COUNT 172, SODIUM 133, POTASSIUM 3.2, CHLORIDE 95, BUN 9, CREATININE 0.55, GLUCOSE 144, CALCIUM 8.1, MAGNESIUM 1.8, AST 14, ALT 14, ALK PHOS 70, TOTAL PROTEIN 6.1, ALBUMIN 1.7. SERUM ACETONES SMALL. AN ABG WAS OBTAINED THIS MORNING AND REVEALED: PH 7.530, PC02 34, P02 66, HC03 28.4, 02 SAT 95, A-A GRADIENT 41, FI02 21.0. HIS BLOOD GLUCOSE LEVELS HAVE REMAINED IN THE 100s THIS MORNING AND THROUGHOUT THE NIGHT. HE IS CURRENTLY RECEIVING NORMAL SALINE WITH 2 AMPS BICARB IN EACH LITER AT 150 ML/HR, AN INSULIN DRIP, PEPCID 20MG IV BID, PROTONIX 40MG IV BID, GI COCKTAIL 15ML QID, MORPHINE SULFATE 1-2MG IV Q4H PRN, OTBS Q1H, THE POTASSIUM AND MAGNESIUM PROTOCOLS, AND ZOFRAN 4MG IV Q4H PRN. WE RESUMED HIS HOME MEDICATIONS OF TRICOR, CREON, NORCO, COZAAR, METFORMIN, REGLAN, LOPRESSOR. TODAY, WE WILL DISCONTINUE THE BICARB FROM HIS IV FLUIDS. WE WILL HOLD HIS METFORMIN AND OBTAIN AN ABDOMEN/PELVIS CT WITH CONTRAST IN THE MORNING. OTHERWISE, WE PLAN TO FOLLOW-UP WITH AM LABS AND CONTINUE TO MONITOR. TIME SPENT ON CLINICAL ASSESSMENT, REVIEWING LABS AND IMAGING, DECISION MAKING, AND DOCUMENTATION GREATER THAN 45 MINUTES. - Past Medical Family Social History Past Med/Fam/Surg Hx: No changes since H&P Allergies: Allergies No Known Drug Allergies Allergy (Verified 02/28/20 13:13) - Review of Systems ROS: No change since H&P - Vital Signs and I&O's Vital Signs: Vital Signs Temperature 98.3 F Temperature 98.0 F Pulse Rate 106 Pulse Rate 111 Pulse Rate 95 Pulse Rate 97 Pulse Rate 95 Pulse Rate 95 Pulse Rate 96 Pulse Rate 95 Pulse Rate 100 Pulse Rate 95 Respiratory Rate 20 Respiratory Rate 20 Respiratory Rate 21 Respiratory Rate 13 Respiratory Rate 24 Respiratory Rate 50 Respiratory Rate 16 Respiratory Rate 23 Respiratory Rate 12 Respiratory Rate 20 Respiratory Rate 13 Respiratory Rate 21 Respiratory Rate 21 Respiratory Rate 12 Respiratory Rate 16 Respiratory Rate 26 Blood Pressure 150/99 Blood Pressure 145/88 Blood Pressure 131/82 Blood Pressure 148/92 Blood Pressure 148/82 Blood Pressure 164/93 Blood Pressure 164/83 Blood Pressure 149/97 Blood Pressure 149/80 O2 Sat by Pulse Oximetry 96 O2 Sat by Pulse Oximetry 92 O2 Sat by Pulse Oximetry 95 O2 Sat by Pulse Oximetry 96 O2 Sat by Pulse Oximetry 94 O2 Sat by Pulse Oximetry 96 O2 Sat by Pulse Oximetry 87 O2 Sat by Pulse Oximetry 94 O2 Sat by Pulse Oximetry 95 O2 Sat by Pulse Oximetry 96 Intake and Output: Intake & Output 08/23/23 08/24/23 08/25/23 08/26/23 11:59 11:59 11:59 11:59 Intake Total 4377 / 4377 5811 / 5811 Balance 4377 / 4377 5811 / 5811 - Physical Exam Oriented: Normal Eyes: Normal Ear: Normal Nose: Normal Throat: Normal Respiratory: Generalized, Diminished Cardiovascular: Normal : Normal Auscultation: Bowel Sounds: Normal Tenderness: RLQ, LLQ, Suprapubic, Moderate Skin: Decreased Turgur Musculoskeletal: Normal Psychiatric: Normal Mood Description: Calm Affect: Normal Speech Pattern: Clear - Laboratory and Diagnostics Result Diagrams: 08/26/23 04:00 08/26/23 04:00 Labs: Laboratory WBC 8.5 X10^3/uL (3.6-10.0) 08/26/23 04:00 RBC 3.97 X10^6/uL (4.7-6.0) L 08/26/23 04:00 Hgb 11.0 g/dL (13.5-18.0) L 08/26/23 04:00 Hct 32.7 % (42.0-54.0) L 08/26/23 04:00 MCV 82.2 fL (80.0-100.0) 08/26/23 04:00 MCH 27.8 pg (27.0-34.0) 08/26/23 04:00 MCHC 33.8 g/dL (33.0-35.0) 08/26/23 04:00 RDW 15.2 % (11.6-16.5) 08/26/23 04:00 Plt Count 172 X10^3/uL (150.0-450.0) 08/26/23 04:00 Plt Count Comment Adequate (ADEQUATE) 08/24/23 14:05 MPV 8.0 fL (7.4-11.0) 08/26/23 04:00 Neut % (Auto) 68.9 % (42.0-75.0) 08/26/23 04:00 Lymph % (Auto) 11.2 % (21.0-51.0) L 08/26/23 04:00 [place] % (Auto) 18.6 % (0.0-13.0) H 08/26/23 04:00 Eos % (Auto) 0.8 % (0.9-2.9) L 08/26/23 04:00 Baso % (Auto) 0.5 % (0.2-1.0) 08/26/23 04:00 Neut # (Auto) 5.9 x10^3/uL (2.2-4.8) H 08/26/23 04:00 Lymph # (Auto) 1.0 X10^3/uL (1.3-2.9) L 08/26/23 04:00 [place] # (Auto) 1.6 x10^3/uL (0.3-0.8) H 08/26/23 04:00 Eos # (Auto) 0.1 x10^3/uL (0.0-0.2) 08/26/23 04:00 Baso # (Auto) 0.0 X10^3/uL (0.0-0.1) 08/26/23 04:00 Absolute Nucleated RBC 0.0 /100WBC 08/26/23 04:00 Total Counted 100 08/24/23 14:05 Neutrophils % (Manual) 69 % (39-76) 08/24/23 14:05 Band Neutrophils % 8 % (0-10) 08/24/23 14:05 Lymphocytes % (Manual) 10 % (13-43) L 08/24/23 14:05 Monocytes % (Manual) 9 % (4-9) 08/24/23 14:05 Eosinophils % (Manual) 1 % (0-6) 08/24/23 14:05 Metamyelocytes % 1 08/24/23 14:05 Myelocytes % 2 08/24/23 14:05 Plt Morphology Comment Normal (NORMAL) 08/24/23 14:05 RBC Morphology Normal (NORMAL) 08/24/23 14:05 Sample Site Rrad 08/26/23 08:55 ABG pH 7.530 (7.35-7.45) H 08/26/23 08:55 ABG pCO2 34.0 mmHg (35.0-45.0) L 08/26/23 08:55 ABG pO2 66.0 mmHg (80.0-100.0) L 08/26/23 08:55 ABG HCO3 28.4 mmol/L (22-26) H 08/26/23 08:55 ABG O2 Saturation 95.0 % (90-100) 08/26/23 08:55 ABG Base Excess 5.7 mmol/L (-2.0-2.0) H 08/26/23 08:55 Clark Test Pos 08/26/23 08:55 A-a Gradient 41.0 mmHg 08/26/23 08:55 FiO2 21.0 08/26/23 08:55 Blood Gas Comments Pt ivis well elj cdn 08/26/23 08:55 Sodium 133 mmol/L (136-145) L 08/26/23 04:00 Corrected Sodium 134 mmol/L (136-145) L 08/26/23 04:00 Potassium 3.2 mmol/L (3.5-5.1) L 08/26/23 04:00 Chloride 95 mmol/L (98-107) L 08/26/23 04:00 Carbon Dioxide 30.2 mmol/L (21-32) 08/26/23 04:00 BUN 9 mg/dL (7-18) 08/26/23 04:00 Creatinine 0.55 mg/dL (0.70-1.30) L 08/26/23 04:00 Est GFR (MDRD) Af Amer > 60 (>60) 08/26/23 04:00 Est GFR (MDRD) Non-Af > 60 (>60) 08/26/23 04:00 Glucose 144 mg/dL (65-99) H 08/26/23 04:00 POC Glucose (mg/dL) 145 mg/dL (65-99) H 08/26/23 10:43 Hemoglobin A1c 13.2 % 08/24/23 14:05 Calcium 8.1 mg/dL (8.5-10.1) L 08/26/23 04:00 Corrected Calcium 9.9 mg/dL (8.5-10.1) 08/26/23 04:00 Magnesium 1.8 mg/dL (2.0-2.9) L 08/26/23 04:00 Total Bilirubin 0.60 mg/dL (0.2-1.0) 08/26/23 04:00 AST 14 Units/L (15-37) L 08/26/23 04:00 ALT 14 Units/L (12-78) 08/26/23 04:00 Alkaline Phosphatase 70 Units/L (46-116) 08/26/23 04:00 Total Protein 6.1 g/dL (6.4-8.2) L 08/26/23 04:00 Albumin 1.7 g/dL (3.4-5.0) L 08/26/23 04:00 Globulin 4.4 g/dL (2.5-4.5) 08/26/23 04:00 Albumin/Globulin Ratio 0.4 Ratio (1.1-2.1) L 08/26/23 04:00 Amylase 22 Units/L (25-115) L 08/24/23 14:05 Lipase 56 Units/L (16-77) 08/24/23 14:05 Acetone, Semi-Quant Small (NEGATIVE) H 08/26/23 04:00 - Plan (1) DKA (diabetic ketoacidosis) Status: Acute Qualifiers: Diabetes mellitus type: type 2 Diabetes mellitus complication detail: without coma Qualified Code(s): E11.10 - Type 2 diabetes mellitus with ketoacidosis without coma Plan: NORMAL SALINE AT 150 ML/HR, AN INSULIN DRIP, PEPCID 20MG IV BID, PROTONIX 40MG IV BID, GI COCKTAIL 15ML QID, MORPHINE SULFATE 1-2MG IV Q4H PRN, OTBS Q1H, THE POTASSIUM AND MAGNESIUM PROTOCOLS, AND ZOFRAN 4MG IV Q4H PRN. WE RESUMED HIS HOME MEDICATIONS OF TRICOR, CREON, NORCO, COZAAR, METFORMIN, REGLAN, LOPRESSOR. (2) Acute hyponatremia Status: Acute (3) Abdominal pain Status: Acute Qualifiers: Abdominal location: lower abdomen, unspecified Qualified Code(s): R10.30 - Lower abdominal pain, unspecified Plan: OBTAIN ABDOMEN/PELVIS CT WITH CONTRAST (4) Nausea and vomiting Status: Acute (5) Hyperlipidemia Status: Chronic Qualifiers: Hyperlipidemia type: mixed hyperlipidemia Qualified Code(s): E78.2 - Mixed hyperlipidemia (6) Chronic pancreatitis Status: Chronic Qualifiers: Pancreatitis type: unspecified pancreatitis type Qualified Code(s): K86.1 - Other chronic pancreatitis (7) GERD (gastroesophageal reflux disease) Status: Acute Qualifiers: Esophagitis presence: esophagitis presence not specified Qualified Code(s): K21.9 - Gastro-esophageal reflux disease without esophagitis (8) HTN (hypertension) Status: Chronic Qualifiers: Hypertension type: primary hypertension Qualified Code(s): I10 - Essential (primary) hypertension
--- NOTE | 2023-08-26 15:15 | CT ---
EXAM:CT abdomen and pelvis with IV contrastHISTORY:ABDOMINAL PAIN; DKA, N/V-pancreatitisCOMPARISON:CT 03/01/2022TECHNIQUE:Multiple axial images of the abdomen and pelvis were obtained from the lung bases to the pubic symphysis following the administration of IV contrast. Dose reduction techniques including Automated Exposure Control (AEC) and adjustment of mA and kV were utilized.FINDINGS:The visualized portions of the lung bases reveal trace left pleural effusion and mild bibasilar atelectasis.There is fatty infiltration of the liver. There is splenomegaly that is increased from prior study.Gallbladder appears normal. No biliary ductal dilation.Acute pancreatitis is seen involving primarily the body and tail of the pancreas. The pancreatitis is fairly extensive with fluid extending along the left pericolic gutter. No well-formed pseudocyst is seen at this time but there appear to be pockets of fluid that may develop into pseudocysts located in the lesser sac and lateral to the gastric fundus.The adrenal glands appear normal.Kidneys are excreting contrast at time of imaging. Possible very tiny cyst is seen in the right kidney. No hydronephrosis is seen. Ureters and bladder appear normal.Appendix is not seen but no pericecal inflammation is seen. There is mild inflammation of jejunum associated with the pancreatitis. No evidence of bowel obstruction is seen. There is no constipation.Prostate gland is normal in size. There is fatty distention of the left inguinal canal.Abdominal aorta is normal in size.No suspicious lymphadenopathy.No free fluid is seen in the pelvis. No free intraperitoneal air is seen.There are L5 pars defects without spondylolisthesis.IMPRESSION:Prominent acute pancreatitis changes involving the body and tail of the pancreas. Fluid collections are seen in the lesser sac and lateral to the gastric fundus but these appear poorly formed without evidence of a well-formed pseudocyst at this time. Recommend follow-up CT in 5-10 days the time.THIS IS AN ELECTRONICALLY VERIFIED FINAL REPORT08/26/2023 3:11 PM - Electronically signed by Sai Martinez MD
[2023-08-26] MEDS: SNACK - Diabetic Appropriate PO SCH (20:12)
[2023-08-27] MEDS: NS 1,000 ML IV 1,000 ML IV SCH ×2 (02:24→06:11)
[2023-08-27] MEDS: NORCO 10/325 TAB PO PRN (02:45)
[2023-08-27] MEDS: MORPHINE SULFATE INJ 2 MG INJ IVP PRN (03:49)
[2023-08-27 04:50] LABS: BASOPHILS % (AUTO) 0.3 % (0.2-1.0); EOSINOPHILS # (AUTO) 0.1 x10^3/uL (0.0-0.2); EOSINOPHILS % (AUTO) 0.9 % (0.9-2.9); HEMATOCRIT 34.3 % (42.0-54.0); HEMOGLOBIN 11.5 g/dL (13.5-18.0); LYMPHOCYTES # (AUTO) 0.9 X10^3/uL (1.3-2.9); LYMPHOCYTES % (AUTO) 10.3 % (21.0-51.0); MEAN CORPUSCULAR HEMOGLOBIN 27.7 pg (27.0-34.0); MEAN CORPUSCULAR HGB CONC 33.6 g/dL (33.0-35.0); MEAN CORPUSCULAR VOLUME 82.4 fL (80.0-100.0); MEAN PLATELET VOLUME 8.1 fL (7.4-11.0); MONOCYTES # (AUTO) 1.4 x10^3/uL (0.3-0.8); MONOCYTES % (AUTO) 16.2 % (0.0-13.0); NEUTROPHILS # (AUTO) 6.1 x10^3/uL (2.2-4.8); NEUTROPHILS % (AUTO) 72.3 % (42.0-75.0); PLATELET COUNT 179 X10^3/uL (150.0-450.0); RED BLOOD COUNT 4.17 X10^6/uL (4.7-6.0); WHITE BLOOD COUNT 8.5 X10^3/uL (3.6-10.0)
[2023-08-27 05:02] LABS: ALANINE AMINOTRANSFERASE 14 Units/L (12-78); ALBUMIN 1.7 g/dL (3.4-5.0); ALKALINE PHOSPHATASE 70 Units/L (46-116); AMYLASE 21 Units/L (25-115); ASPARTATE AMINO TRANSFERASE 17 Units/L (15-37); BLOOD UREA NITROGEN 8 mg/dL (7-18); CALCIUM 8.2 mg/dL (8.5-10.1); CARBON DIOXIDE 26.4 mmol/L (21-32); CHLORIDE 97 mmol/L (98-107); CHOL/HDL RATIO 11.9 (0.0-5.0); CHOLESTEROL 273 mg/dL (0-200); COR NA(FOR HYPERGLY) 134 mmol/L (136-145); CREATININE 0.52 mg/dL (0.70-1.30); GLUCOSE 151 mg/dL (65-99); HDL CHOLESTEROL 23 mg/dL (40-60); LIPASE 43 Units/L (16-77); MAGNESIUM 1.8 mg/dL (2.0-2.9); POTASSIUM 3.7 mmol/L (3.5-5.1); SODIUM 133 mmol/L (136-145); TOTAL PROTEIN 6.1 g/dL (6.4-8.2); TRIGLYCERIDES 336 mg/dL (0-150); eGFR NON BLACK RACES > 60 (>60)
[2023-08-27] MEDS ORDERED: CONSULT PHARMACY - POTASSIUM & MAGNESIUM XX SCH (07:00)
[2023-08-27] MEDS: COZAAR PO SCH (08:45)
[2023-08-27 08:50] VITALS: TEMP 98.2
[2023-08-27] MEDS: LOPRESSOR TAB 50 MG PO SCH (08:59)
[2023-08-27] MEDS ORDERED: K-RIDER 10 MEQ/NS 100 ML 10 MEQ/100 ML BAG IV SCH (09:00)
[2023-08-27] MEDS ORDERED: MAGNESIUM SULFATE 1 GRAM/100 mL PREMIX 1 G/100 ML BAG IV SCH (09:00)
[2023-08-27] MEDS: LEVSIN/MAALOX/LIDOC VISC PO SCH (09:01)
[2023-08-27] MEDS ORDERED: NovoLIN R (or HumuLIN R) SC PRN (09:28)
[2023-08-27] MEDS ORDERED: MAG-OX TAB PO SCH (10:00)
[2023-08-27] MEDS ORDERED: K-DUR TAB 20 MEQ PO ONE (10:00)
[2023-08-27 11:05] VITALS: BP 139/95; PULSE 85; RESP 25; O2SAT 93
== END 2023-08-27 12:30 | disposition home or self-care (01) | DRG 638 ==
LOC: MED/SURG → OBSVTOIN 13:10 → ICU 17:51
PROVIDERS: ADMIT Internal Medicine; ATTEND Internal Medicine